=== PATIENT | female | born 2000 | race Caucasian/White ===

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

== ENCOUNTER 2021-09-19 03:53 | Emergency (ER) | payer OTHER, SELFPAY ==
--- NOTE | ~2021-09-19 | US_ITS ---
EXAMINATION: US OBSTETRICAL ULTRASOUND CLINICAL INFORMATION: Left lower quadrant and pelvic pain. 12 weeks by dates. COMPARISON: None. LMP: 06/28/2021. Gestational age by maternal dates is 11 weeks 6 days. Estimated date of delivery by maternal dates is 04/04/2022. TECHNIQUE: Ultrasound of the maternal pelvis is performed using transabdominal and transvaginal transducers. Transvaginal imaging is performed due to inadequate visualization transabdominally. M-mode Doppler is also performed. FINDINGS: With transvaginal scanning, there is suggestion of a tiny intrauterine gestational sac, only 0.3 cm size (4 weeks 5 days). The endometrial double wall thickness is 10 mm. No fluid in uterine cavity. No visible embryo or yolk sac. MATERNAL ADNEXA: The right maternal ovary measures 3.2 x 1.9 x 1.9 cm. No right adnexal mass. The left maternal ovary measures 2.7 x 2.0 x 2.7 cm. No left adnexal mass. No maternal pelvic ascites. US/US OB pelvic and transvaginal IMPRESSION: -Probable early intrauterine gestational sac, only 3 mm size (4 weeks 5 days). -No visible embryo or yolk sac. -No maternal adnexal mass or pelvic ascites. -Recommend follow-up beta hCG and ultrasound to confirm developing intrauterine .
[2021-09-19 04:13] VITALS: BP 136/76; PULSE 91; RESP 18; TEMP 36.3; O2SAT 97; BMI 32.0
[2021-09-19 04:34] LABS: Hematocrit 36.6 % (37.0-47.0); Hemoglobin 12.4 g/dl (12.0-16.0); Mean Corpuscular HGB Conc 33.9 g/dl (31.0-35.0); Mean Corpuscular Hemoglobin 29.3 pg (27.0-33.0); Mean Corpuscular Volume 86.5 fL (80.0-98.0); Mean Platelet Volume 10.3 fL (9.4-12.3); Platelet Count 321 X10*3/uL (160-400); Red Blood Count 4.23 X10*6/uL (4.20-5.50); Red Cell Distribution Width 12.3 % (11.0-16.0); White Blood Count 9.5 X10*3/uL (4.8-10.8)
[2021-09-19 04:36] LABS: Appearance Urine CLOUDY; Color Urine YELLOW; Glucose Urine UA NEG (NEG); Leukocyte Esterase Urine NEG (NEG); Nitrite Urine NEG (NEG); Specific Gravity - Urine >= 1.030 (1.005-1.025); Urine Blood NEG (NEG); Urine Ketones 5 MG/DL (NEG); Urine Protein TRACE MG/DL (NEG-TRACE)
[2021-09-19 04:46] LABS: Bacteria Urine 2+ /LPF; Granular Casts Urine 0-2 /LPF; RBC Urine 0-2 /HPF (0); Squamous Epithelial Cell Urine 1+ /LPF; WBC Urine 0-2 /HPF (0-4)
[2021-09-19 04:51] LABS: Alanine Aminotransferase 14 U/L (0-31); Albumin Level 4.1 g/dL (3.5-5.0); Alkaline Phosphatase 75 U/L (39-117); Anion Gap 11 (12-20); Aspartate Amino Transferase 15 U/L (5-31); Bilirubin Total 0.5 mg/dL (0.0-1.0); Blood Urea Nitrogen 8 mg/dL (9-16); Calcium 9.4 mg/dL (8.4-10.2); Carbon Dioxide 23 mmol/L (22-29); Chloride 105 mmol/L (96-108); Creatinine Clr Calc Pharmacy 113.6; Estimated Glomerular Filt Rate > 60; Glucose Random 130 mg/dL (60-115); Potassium 3.4 mmol/L (3.3-5.1); Sodium 136 mmol/L (135-145); Total Protein 7.1 g/dL (6.5-8.0)
--- NOTE | 2021-09-19 07:42 | ED.GENADULT ---
HPI - General Adult General Chief complaint: General Medical Stated complaint: stomach pain radiates to bladder Time Seen by Provider: 09/19/21 05:27 Source: patient Mode of arrival: ambulatory Limitations: no limitations History of Present Illness HPI narrative: left pelvic pain all night last night, in addition she has a headache. Patient states that she has a sore throat. Denies N/V/D, no dysuria, LMP 3/10 patient is currently . Patient has her first appointment on the . Patient denies having an ultrasound. Related Data Previous Rx's Medication Instructions Recorded cyclobenzaprine 10 mg tablet 10 mg PO TID PRN #10 tab 02/01/20 ibuprofen 600 mg tablet 600 mg PO Q8H PRN #10 tab 02/01/20 Allergies Allergy/AdvReac Type Severity Reaction Status Date / Time No Known Allergies Allergy Verified 02/01/20 00:18 [No Known Allergies*] Review of Systems Constitutional: Constitutional: Reports no additional constitutional complaints Eyes: Eyes: Reports no additional eye complaints ENT: Denies dizziness Cardiovascular: Cardiovascular: Reports no additional cardiovascular complaints Respiratory: Respiratory: Reports as per HPI Gastrointestinal: Gastrointestinal: Reports no additional gastrointestinal complaints Genitourinary: Genitourinary: Reports no additional female genitourinary complaints Musculoskeletal: Musculoskeletal: Reports no additional musculoskeletal complaints Integumentary/Breasts: Skin/Breast: Denies rash Neurologic: Reports system reviewed and no additional complaints, except as documented, Denies dizziness and Denies Sensory deficit (Neuro) Psychiatric: Psychiatric: Denies anxiety PMFSH Social History Social History Alcohol intake: never Patient Tobacco Use Status: Former Tobacco user Smoked in Last 30 Days: Yes Use of substances other than those prescribed or required for medical reasons: No Advance Directives: No Advance Directives Information Provided: No Patient : Yes Physical Exam ED Vital Signs: Vital Signs - 24 hr 09/19/21 04:13 09/19/21 07:56 09/19/21 10:02 Temperature 97.3 F 97.6 F Pulse Rate 91 88 99 Respiratory Rate 18 18 18 Blood Pressure 136/76 111/74 161/82 H Pulse Oximetry 97 98 99 BMI result Body Mass Index 32.0 Const General: healthy appearing Nutritional Appearance: average body habitus Orientation/consciousness: oriented to person and patient oriented x3 Limitations: no limitations HENMT Other: erythema to pharynx, no exudates Head: Yes normal to inspection Ears: external ears normal General nose exam: Normal external nose present Mouth: Normal oral and palatal mucosa present Throat: Yes posterior oropharynx normal Eyes General: appearance normal, both eyes and all related structures Neck Neck: Yes normal visual inspection Chest Chest palpation & inspection: normal inspection of the chest Resp Auscultation: clear to auscultation bilaterally Cardio Jugular venous distension: no JVD Rate: regular rate Rhythm: regular rhythm Heart sounds: S1 normal heart sound present and S2 normal heart sound present GI Other: Left lower/ pelvic pain to palpation Palpation (GI): Soft to palpation, nontender and No hepatosplenomegaly present Auscultation: normal bowel sounds General: Yes no CVA tenderness Back/Spine/Pelvis Back: no CVA tenderness Skin General skin exam: no rashes or lesions noted Neuro General: oriented to person and patient oriented x3 Cranial nerves: Yes CN's II-XII intact bilaterally Motor exam (neuro): 5/5 motor strength present throughout Sensory Exam: No Sensory deficit (Neuro) Extrem General: Yes normal to inspection Psych Appearance: grossly normal Course Reevaluation(s) Reevaluation #1: Low HCG, early gestational sac, will follow with OB Time: 11:10 Medical Decision Making Lab Data Result diagrams: 09/19/21 04:29 09/19/21 04:29 Labs: Lab Results 09/19/21 09/19/21 09/19/21 Range/Units 04:29 04:29 04:29 WBC 9.5 (4.8-10.8) X10*3/uL RBC 4.23 (4.20-5.50) X10*6/uL Hgb 12.4 (12.0-16.0) g/dl Hct 36.6 L (37.0-47.0) % MCV 86.5 (80.0-98.0) fL MCH 29.3 (27.0-33.0) pg MCHC 33.9 (31.0-35.0) g/dl RDW 12.3 (11.0-16.0) % Plt Count 321 (160-400) X10*3/uL MPV 10.3 (9.4-12.3) fL Absolute Nucleated RBC 0.000 (0.0-0.012) X10*3/uL Nucleated RBC % (auto) 0.0 (0.0-0.2) /100WBC Sodium 136 (135-145) mmol/L Potassium 3.4 (3.3-5.1) mmol/L Chloride 105 (96-108) mmol/L Carbon Dioxide 23 (22-29) mmol/L Anion Gap 11 L (12-20) BUN 8 L (9-16) mg/dL Creatinine 0.77 (0.5-1.4) mg/dL Estim Creat Clear Calc 113.6 Estimated GFR > 60 Random Glucose 130 H (60-115) mg/dL Calcium 9.4 (8.4-10.2) mg/dL Total Bilirubin 0.5 (0.0-1.0) mg/dL AST 15 (5-31) U/L ALT 14 (0-31) U/L Alkaline Phosphatase 75 (39-117) U/L Total Protein 7.1 (6.5-8.0) g/dL Albumin 4.1 (3.5-5.0) g/dL Beta HCG, Quant 720 mIU/mL Urine Color YELLOW Urine Appearance CLOUDY Urine pH 6.0 (5.0-8.0) Ur Specific [place] >= 1.030 H (1.005-1.025) Urine Protein TRACE (NEG-TRACE) MG/DL Urine Glucose (UA) NEG (NEG) MG/DL Urine Ketones 5 (NEG) MG/DL Urine Blood NEG (NEG) Urine Nitrite NEG (NEG) Ur Leukocyte Esterase NEG (NEG) Urine RBC 0-2 (0) /HPF Urine WBC 0-2 (0-4) /HPF Ur Squamous Epith Cells 1+ /LPF Urine Bacteria 2+ /LPF Granular Casts 0-2 /LPF COVID-19 ([facility]) (Negative) COVID-19 Clin Com S. pyogenes GrpA SAMANTHA (Negative) 09/19/21 09/19/21 Range/Units 08:06 08:06 WBC (4.8-10.8) X10*3/uL RBC (4.20-5.50) X10*6/uL Hgb (12.0-16.0) g/dl Hct (37.0-47.0) % MCV (80.0-98.0) fL MCH (27.0-33.0) pg MCHC (31.0-35.0) g/dl RDW (11.0-16.0) % Plt Count (160-400) X10*3/uL MPV (9.4-12.3) fL Absolute Nucleated RBC (0.0-0.012) X10*3/uL Nucleated RBC % (auto) (0.0-0.2) /100WBC Sodium (135-145) mmol/L Potassium (3.3-5.1) mmol/L Chloride (96-108) mmol/L Carbon Dioxide (22-29) mmol/L Anion Gap (12-20) BUN (9-16) mg/dL Creatinine (0.5-1.4) mg/dL Estim Creat Clear Calc Estimated GFR Random Glucose (60-115) mg/dL Calcium (8.4-10.2) mg/dL Total Bilirubin (0.0-1.0) mg/dL AST (5-31) U/L ALT (0-31) U/L Alkaline Phosphatase (39-117) U/L Total Protein (6.5-8.0) g/dL Albumin (3.5-5.0) g/dL Beta HCG, Quant mIU/mL Urine Color Urine Appearance Urine pH (5.0-8.0) Ur Specific [place] (1.005-1.025) Urine Protein (NEG-TRACE) MG/DL Urine Glucose (UA) (NEG) MG/DL Urine Ketones (NEG) MG/DL Urine Blood (NEG) Urine Nitrite (NEG) Ur Leukocyte Esterase (NEG) Urine RBC (0) /HPF Urine WBC (0-4) /HPF Ur Squamous Epith Cells /LPF Urine Bacteria /LPF Granular Casts /LPF COVID-19 ([facility]) Negative (Negative) COVID-19 Clin Com See Note S. pyogenes GrpA SAMANTHA Negative (Negative) Imaging Data Pelvic US: Radiologist's impression: IMPRESSION: -Probable early intrauterine gestational sac, only 3 mm size (4 weeks 5 days). -No visible embryo or yolk sac. -No maternal adnexal mass or pelvic ascites. -Recommend follow-up beta hCG and ultrasound to confirm developing intrauterine . ? Discharge Plan Discharge Clinical Impression: Early stage of Patient Disposition: Home, Self-Care Instructions: at 7 to 10 Weeks (ED) Prescriptions: No Action ibuprofen 600 mg tablet 600 mg PO Q8H PRN (Reason: pain) Qty: 10 0RF cyclobenzaprine 10 mg tablet 10 mg PO TID PRN (Reason: muscle spasm) Qty: 10 0RF Referrals: Physician,Unknown J [Primary Care Provider] - 2 weeks Stand Alone Forms: Work/School Release
[2021-09-19 07:56] VITALS: BP 111/74; PULSE 88; RESP 18; TEMP 36.4; O2SAT 98
[2021-09-19] MEDS: Acetaminophen 325 MG TABLET 650 MG PO (08:00)
[2021-09-19 08:35] LABS: Strep A Nucleic Acid Negative (Negative)
[2021-09-19 08:36] LABS: COVID-19 Test Negative (Negative); IDNOW Serial# 9DB6401D
[2021-09-19 09:52] LABS: HCG Quantitative 720 mIU/mL
[2021-09-19 10:02] VITALS: BP 161/82; PULSE 99; RESP 18; O2SAT 99
== END 2021-09-19 11:25 | disposition home or self-care (01) ==
PROVIDERS: Emergency Provider Emergency Medicine
DX: O26.891 Other specified pregnancy related conditions, first trimester (principal); R10.2 Pelvic and perineal pain; Z3A.01 Less than 8 weeks gestation of pregnancy; Z20.822 Contact with and (suspected) exposure to COVID-19
CPT/HCPCS: 36415; 76801; 76817; 80053; 81001; 84702; 85027; 87635; 87651; 99284

== ENCOUNTER 2022-10-18 18:41 | Emergency (ER) | payer OTHER, SELFPAY ==
[2022-10-18 18:45] VITALS: BP 144/68; PULSE 75; RESP 18; TEMP 36.8; O2SAT 100; BMI 32.0
--- NOTE | 2022-10-18 18:46 | ED.GENADULT ---
HPI - General Adult General Chief complaint: Skin/Abscess/Foreign Body Stated complaint: bad sun burn? back pain Time Seen by Provider: 10/18/22 19:06 Source: patient Mode of arrival: ambulatory Limitations: no limitations History of Present Illness HPI narrative: This is a 22-year-old female presenting to the emergency department for evaluation of sunburn to back with associated subjective fevers, chills, fatigue, nausea and her skin on her back is hurting. Patient reports she got sunburn 2 days ago and it is not getting better. Has been trying aloe with little to no relief. No sick contacts. No chest pain, shortness of breath, headache, vision changes, dizziness and weakness. Related Data Previous Rx's Medication Instructions Recorded cyclobenzaprine 10 mg tablet 10 mg PO TID PRN muscle spasm #10 02/01/20 tabs ibuprofen 600 mg tablet 600 mg PO Q8H PRN pain #10 tabs 02/01/20 ondansetron 4 mg disintegrating 4 mg PO Q6H PRN nausea and 10/18/22 tablet vomiting #14 tabs Allergies Allergy/AdvReac Type Severity Reaction Status Date / Time No Known Allergies Allergy Verified 02/01/20 00:18 [No Known Allergies*] Review of Systems Review of Systems: Constitutional : No Weight loss, No Fever, No Chills, No Fatigue, No Malaise ENT/Mouth : No sore throat, No Rhinorrhea Eyes: No Eye Pain, No Swelling, No Redness Cardiovascular : No Chest Pain, No SOB, No Dyspnea on Exertion, No Orthopnea, No Edema, No Palpitations Respiratory : No Cough, No Sputum, No Wheezing Gastrointestinal : No Nausea, No Vomiting, No Diarrhea, No Constipation, No abdominal Pain, No Hematochezia, No Melena Genitourinary : No Dysuria, No Urinary Frequency, No Hematuria, Musculoskeletal : No joint pain, No Myalgias, No Joint Swelling Skin : No Skin Lesions, No rash, + sun burn Neuro : No Weakness, No Numbness, No Dizziness, No Headache Psych : No Anxiety/Panic, No Depression All other systems reviewed and are negative Yes all other systems are reviewed and are negative [facility] Past Medical History Attestation statement: The following information was validated with the patient. Source: old records reviewed and nursing notes reviewed Social History Social History Alcohol intake: never Patient Tobacco Use Status: Former Tobacco user Physical Exam ED Vital Signs: Vital Signs - 24 hr 10/18/22 18:45 Temperature 98.3 F Pulse Rate 75 Respiratory Rate 18 Blood Pressure 144/68 H Pulse Oximetry 100 Oxygen Delivery Method Room Air BMI result Body Mass Index 32.0 Vital signs stable Appearance: Alert.? Oriented X3.? No acute distress.? Head: Normocephalic, atraumatic, no step-offs or deformities Eyes: Pupils equal, round and reactive to light.? ENT: Pharynx normal.? Neck: Normal inspection.? Neck supple.? CVS: Normal heart rate and rhythm.? Pulses normal.? Respiratory: No respiratory distress.? Breath sounds normal.? Abdomen: Soft and nontender.? Skin: Skin warm and dry.? Normal skin color.? Normal skin turgor.?+ superficial sunburn to back, lower extremities. No blistering. No signs of full-thickness burn, circumferential garcia are 3rd degree garcia. No airway involvement. Extremities: No lower extremity edema.? No calf ttp. 5/5 strength to bilateral upper and lower extremities Back: No midline tenderness, no C-spine tenderness, full range of motion, no CVA tenderness bilaterally Neuro: Oriented X 3.? No motor deficit.? No sensory deficit. CN 2-12 intact Course Course Course Narrative: This is an RME: Additional HPI, ROS, PE not included below will be deferred to primary provider. 22 yo F presents w/ sun burn to back X2 days w/ a/c fevers and nausea Plan- zofran ordered Reevaluation(s) Reevaluation #1: Will discharge patient home with Zofran for nausea. Educated patient on diagnosis and treatment plan, answered all question, patient verbalizes understanding. At this time patient will be discharged home, advised to return with new or worsening symptoms. Educated on worrisome signs and symptoms and when to return. At this time I feel comfortable discharge home. Time: 19:05 Medical Decision Making Medical Decision Making MDM Narrative: 22-year-old female presents with sunburn to back. Physical exam significant for superficial sunburn to back, lower extremities. No blistering. No signs of full-thickness burn, circumferential garcia are 3rd degree garcia. No airway involvement. This is likely a superficial sunburn.No signs of full-thickness burn, circumferential garcia are 3rd degree agrcia. No airway involvement. No signs of necrosis, SJS, TEN Will discharge patient home with supportive measures. Differential Diagnosis Differential Diagnoses: The differential diagnosis associated with the presentation includes This is likely a superficial sunburn.No signs of full-thickness burn, circumferential garcia are 3rd degree garcia. No airway involvement. No signs of necrosis, SJS, TEN Admission/Observation Consideration of admission/observation: Escalation of care including admission/observation considered not indicated Core Measures AMI core measures followed: Yes Measure exclusions: not indicated Discharge Plan Discharge Clinical Impression: Sunburn Patient Disposition: Home, Self-Care Instructions: Sunburn (ED), Cold Compress or Soak (ED) Additional Instructions: Take your medications as prescribed. If you were prescribed antibiotics today, it is important that you take your medication to their entirety, do not skip any doses, do not finish them early. Follow-up with your primary care provider this week. Return to the emergency department with new or worsening symptoms. Such as fevers, chills, chest pain, shortness of breath, nausea, vomiting, dizziness, headache, vision changes, lethargy In case of emergency call 911 You can take ibuprofen every 6 hours, Tylenol every 4 as needed for pain or discomfort. Zofran has been sent for nausea and vomiting. Prescriptions: New ondansetron 4 mg tablet,disintegrating 4 mg PO Q6H PRN (Reason: nausea and vomiting) Qty: 14 0RF No Action ibuprofen 600 mg tablet 600 mg PO Q8H PRN (Reason: pain) Qty: 10 0RF cyclobenzaprine 10 mg tablet 10 mg PO TID PRN (Reason: muscle spasm) Qty: 10 0RF Referrals: Physician,Unknown J [Primary Care Provider] - 2 days
== END 2022-10-18 19:13 | disposition home or self-care (01) ==
LOC: HO.ED 19:12
PROVIDERS: Emergency Provider Student in an Organized Health Care Education/Training Program
DX: L55.9 Sunburn, unspecified (principal)
CPT/HCPCS: 99282; 99283

== ENCOUNTER 2023-02-26 08:54 | Emergency (ER) | payer OTHER, SELFPAY ==
[2023-02-26 09:13] VITALS: BP 129/71; PULSE 81; RESP 16; TEMP 37.3; O2SAT 99; BMI 36.8
[2023-02-26 09:31] LABS: MANUAL DIFF FLAG NO
[2023-02-26 09:32] LABS: Basophils Percent Auto 0.4 % (0-2); Eosinophils Absolute Auto 0.1 X10*3/uL (0.0-0.4); Eosinophils Percent Auto 1.3 % (0-4); Hematocrit 37.6 % (37.0-47.0); Hemoglobin 12.6 g/dl (12.0-16.0); Imm Gran Abs Auto 0.02 X10*3/uL (0.00-0.03); Imm Gran Pct Auto 0.2 % (0.0-0.4); Lymphocytes Absolute Auto 1.7 X10*3/uL (1.2-4.9); Lymphocytes Percent Auto 20.5 % (20-40); Mean Corpuscular HGB Conc 33.5 g/dl (31.0-35.0); Mean Corpuscular Hemoglobin 28.4 pg (27.0-33.0); Mean Corpuscular Volume 84.7 fL (80.0-98.0); Monocytes Absolute Auto 0.6 X10*3/uL (0.1-1.2); Monocytes Percent Auto 6.7 % (2-11); Neutrophils Absolute Auto 5.8 x10*3/uL (2.0-8.3); Neutrophils Percent Auto 70.9 % (45-73); Platelet Count 361 X10*3/uL (160-400); Red Blood Count 4.44 X10*6/uL (4.20-5.50); White Blood Count 8.2 X10*3/uL (4.8-10.8)
[2023-02-26 09:49] LABS: Alanine Aminotransferase 27 U/L (0-31); Albumin Level 4.1 g/dL (3.5-5.0); Alkaline Phosphatase 90 U/L (39-117); Anion Gap 12 (12-20); Aspartate Amino Transferase 23 U/L (5-31); Bilirubin Total 0.4 mg/dL (0.0-1.0); Blood Urea Nitrogen 9 mg/dL (9-16); Calcium 9.6 mg/dL (8.4-10.2); Carbon Dioxide 25 mmol/L (22-29); Chloride 108 mmol/L (96-108); Creatinine Clr Calc Pharmacy 132.4; Estimated Glomerular Filt Rate > 60; Glucose Random 113 mg/dL (60-115); Potassium 3.9 mmol/L (3.3-5.1); Sodium 141 mmol/L (135-145); Total Protein 7.3 g/dL (6.5-8.0)
[2023-02-26 10:15] LABS: UPreg QC Valid YES
[2023-02-26 10:16] LABS: Urine Pregnancy NEGATIVE (NEGATIVE)
[2023-02-26 10:22] LABS: Appearance Urine Cloudy; Color Urine Orange; Glucose Urine UA Negative (Negative); Leukocyte Esterase Urine Trace (Negative); Nitrite Urine Negative (Negative); PH 6.5 (5.0-9.0); Specific Gravity - Urine >= 1.030 (1.005-1.025); UMIC TRIGGER UACC YES; Urine Blood Large (3+) (Negative); Urine Ketones Negative (Negative); Urine Protein 30 (1+) mg/dL (Neg-Trace)
[2023-02-26 10:24] LABS: Bacteria Urine Trace (None Seen); Hyaline Casts Urine 0-2 /LPF (0-2); RBC Urine >20 /HPF (0-2); UACC Culture Trigger YES
[2023-02-26 11:10] VITALS: BP 115/81; PULSE 83; RESP 16; TEMP 37.1; O2SAT 98
[2023-02-26 12:25] LABS: HCG Quantitative < 2 mIU/mL
[2023-02-26 12:31] VITALS: BP 99/71; PULSE 76; RESP 16; O2SAT 99
[2023-02-26 12:57] VITALS: BP 113/83; PULSE 68; RESP 16; TEMP 37.1; O2SAT 100
[2023-02-26 13:00] LABS: Hematocrit 38.1 % (37.0-47.0); Hemoglobin 12.6 g/dl (12.0-16.0)
--- NOTE | 2023-02-26 13:13 | ED.FEMALEGU ---
HPI - Female Genitourinary General Chief complaint: Vaginal Bleeding Stated complaint: ? Vaginal bleeding/Abd pain Time Seen by Provider: 02/26/23 11:05 Source: patient Mode of arrival: ambulatory History of Present Illness HPI Narrative: This is a 23-year-old female who presents with significant amount of vaginal bleeding that she states happened previously to her when she had a miscarriage, her last menstrual period was approximately 1 and half months ago in she states over the past couple of days she has noted home test that she states was faintly positive . She states that she was changing pads every hour that were drenched and states that she was passing clots as well. At the time of my interview patient states the bleeding has significantly slowed down in the pain has improved. Related Data Previous Rx's Medication Instructions Recorded cyclobenzaprine 10 mg tablet 10 mg PO TID PRN muscle spasm #10 02/01/20 tabs ibuprofen 600 mg tablet 600 mg PO Q8H PRN pain #10 tabs 02/01/20 ondansetron 4 mg disintegrating 4 mg PO Q6H PRN nausea and 10/18/22 tablet vomiting #14 tabs Allergies Allergy/AdvReac Type Severity Reaction Status Date / Time No Known Allergies Allergy Verified 02/26/23 09:13 [No Known Allergies*] Review of Systems Review of Systems: Pertinent positives and negatives as stated in HPI PMFSH Past Medical History Source: nursing notes reviewed Social History Social History Alcohol intake: never Patient Tobacco Use Status: Former Tobacco user Smoked in Last 30 Days: No Substance Use Type: Marijuana Substance Use Frequency: Occasionally Advance Directives: No Advance Directives Information Provided: No Physical Exam Vital Signs: Vital Signs: Last Vital Signs Temp 98.8 F 02/26/23 12:57 Pulse 68 02/26/23 12:57 Resp 16 02/26/23 12:57 BP 113/83 02/26/23 12:57 Pulse Ox 100 02/26/23 12:57 O2 Del Method Room Air 02/26/23 12:57 BMI result Body Mass Index 36.8 VITAL SIGNS: Reviewed. GENERAL: Well developed, well nourished, in no acute distress. HEAD: Normocephalic/atraumatic EYES: PERRLA, EOMI EARS: Ext canals without abnormality NOSE: Nares patent bilateral OROPHARYNX: no oral lesions noted, posterior pharynx clear NECK: Supple, no adenopathy LUNGS: Normal breath sounds. No adventitious sounds or accessory muscle use. SpO2<100> CARDIOVASCULAR: Regular rate and rhythm without noted murmurs ABDOMEN: Soft, non-tender, non-distended with bowel sounds. MUSCULOSKELETAL: No tenderness, deformities, or effusions noted on gross inspection. EXTREMITIES: No cyanosis, clubbing or edema. SKIN: Inspection of the skin reveals no rashes NEUROLOGIC: Alert and oriented x 4. Strength and sensation to light touch were grossly intact x 4. Medical Decision Making Medical Decision Making [facility] Narrative: 23-year-old female with history and clinical presentation, DDX: Menorrhagia, SAB, ectopic I reviewed all investigations and most notably vital signs do not demonstrated any tachycardia or hypotension. Hematologic indices remain stable without anemia and there is no leukocytosis or left shift, and no thrombocytopenia. Chemistry indices are grossly within normal limits without EDITA and there are no electrolyte or liver enzyme abnormalities, beta hCG is undetectable. Urinalysis consistent with findings that would associated with current menstrual. And no evidence of urinary tract infection and urine is also negative. My interpretation is that patient is having her menstrual bleeding. There is no evidence on beta hCG to suggest recent as it often takes much longer than simply 24 hours for beta-hCG to decline after loss. Patient is hemodynamically stable does not appear to be symptomatic anemic and not anemic on lab work after serial H/H. Differential Diagnosis Differential Diagnoses: The differential diagnosis associated with the presentation includes Please see the discussion above Admission/Observation Consideration of admission/observation: Escalation of care including admission/observation considered Please see the discussion above Lab Data [facility] Lab Attestation statement: I reviewed the patient's lab results. Please see the discussion above 02/26/23 12:55 02/26/23 09:27 Labs: Lab Results 02/26/23 02/26/23 02/26/23 Range/Units 09:27 10:08 12:55 WBC 8.2 (4.8-10.8) X10*3/uL RBC 4.44 (4.20-5.50) X10*6/uL Hgb 12.6 12.6 (12.0-16.0) g/dl Hct 37.6 38.1 (37.0-47.0) % MCV 84.7 (80.0-98.0) fL MCH 28.4 (27.0-33.0) pg MCHC 33.5 (31.0-35.0) g/dl RDW 13.0 (11.0-16.0) % Plt Count 361 (160-400) X10*3/uL MPV 10.0 (9.4-12.3) fL Immature Gran % (Auto) 0.2 (0.0-0.4) % Neut % (Auto) 70.9 (45-73) % Lymph % (Auto) 20.5 (20-40) % [place] % (Auto) 6.7 (2-11) % Eos % (Auto) 1.3 (0-4) % Baso % (Auto) 0.4 (0-2) % Lymph # (Auto) 1.7 (1.2-4.9) X10*3/uL [place] # (Auto) 0.6 (0.1-1.2) X10*3/uL Eos # (Auto) 0.1 (0.0-0.4) X10*3/uL Baso # (Auto) 0.0 (0.0-0.2) X10*3/uL Abs Immat Gran (auto) 0.02 (0.00-0.03) X10*3/uL Absolute Neuts (auto) 5.8 (2.0-8.3) x10*3/uL Absolute Nucleated RBC 0.000 (0.0-0.012) X10*3/uL Nucleated RBC % (auto) 0.0 (0.0-0.2) /100WBC Sodium 141 (135-145) mmol/L Potassium 3.9 (3.3-5.1) mmol/L Chloride 108 (96-108) mmol/L Carbon Dioxide 25 (22-29) mmol/L Anion Gap 12 (12-20) BUN 9 (9-16) mg/dL Creatinine 0.70 (0.5-1.4) mg/dL Estim Creat Clear Calc 132.4 Estimated GFR > 60 Random Glucose 113 (60-115) mg/dL Calcium 9.6 (8.4-10.2) mg/dL Total Bilirubin 0.4 (0.0-1.0) mg/dL AST 23 (5-31) U/L ALT 27 (0-31) U/L Alkaline Phosphatase 90 (39-117) U/L Total Protein 7.3 (6.5-8.0) g/dL Albumin 4.1 (3.5-5.0) g/dL Beta HCG, Quant < 2 mIU/mL Urine Color [place] A Urine Appearance Cloudy Urine pH 6.5 (5.0-9.0) Ur Specific [place] >= 1.030 H (1.005-1.025) Urine Protein 30 (1+) H (Neg-Trace) mg/dL Urine Glucose (UA) Negative (Negative) mg/dL Urine Ketones Negative (Negative) mg/dL Urine Blood Large (3+) H (Negative) Urine Nitrite Negative (Negative) Ur Leukocyte Esterase Trace H (Negative) Urine RBC >20 H (0-2) /HPF Urine WBC 6-10 H (0-5) /HPF Ur Squamous Epith Cells 3-5 (0-2) /HPF Urine Bacteria Trace (None Seen) Hyaline Casts 0-2 (0-2) /LPF Urine Test NEGATIVE (NEGATIVE) Discharge Plan Discharge Clinical Impression: Menorrhagia Patient Disposition: Home, Self-Care Instructions: Menorrhagia (ED) Additional Instructions: Please follow-up with your primary care doctor in the next 1-2 days. Recommend [id number] Tylenol/ibuprofen as needed for pain control. Return to the ER for any worsening symptoms. Prescriptions: No Action ibuprofen 600 mg tablet 600 mg PO Q8H PRN (Reason: pain) Qty: 10 0RF cyclobenzaprine 10 mg tablet 10 mg PO TID PRN (Reason: muscle spasm) Qty: 10 0RF ondansetron 4 mg tablet,disintegrating 4 mg PO Q6H PRN (Reason: nausea and vomiting) Qty: 14 0RF
[2023-02-26] MEDS: Ibuprofen 400 MG TABLET PO (13:53)
[2023-02-26] MEDS: Acetaminophen 325 MG TABLET 975 MG PO (13:54)
== END 2023-02-26 13:45 | disposition home or self-care (01) ==
PROVIDERS: Emergency Provider Student in an Organized Health Care Education/Training Program
DX: N92.0 Excessive and frequent menstruation with regular cycle (principal); R10.2 Pelvic and perineal pain; Z79.899 Other long term (current) drug therapy; Z87.891 Personal history of nicotine dependence
CPT/HCPCS: 36415; 80053; 81001; 81025; 84702; 85014; 85018; 85025; 87086; 99283; 99284

== ENCOUNTER → 2023-11-27 14:22 | Outpatient (BNVA) | payer OTHER, SELFPAY | PROVIDERS: Visit Provider Physician Assistant Medical | DX: S62.652A Nondisplaced fracture of middle phalanx of right middle finger, initial encounter for closed fracture (principal); S62.654A Nondisplaced fracture of middle phalanx of right ring finger, initial encounter for closed fracture | CPT/HCPCS: 73130; 99203 ==

== ENCOUNTER → 2023-12-02 08:05 | Outpatient (BNVA) | payer OTHER, SELFPAY | PROVIDERS: Visit Provider Registered Nurse | DX: S62.652A Nondisplaced fracture of middle phalanx of right middle finger, initial encounter for closed fracture (principal); S62.654A Nondisplaced fracture of middle phalanx of right ring finger, initial encounter for closed fracture; X58.XXXA Exposure to other specified factors, initial encounter | CPT/HCPCS: 99213 ==

== ENCOUNTER 2023-12-09 10:21 | Outpatient (REF) | payer OTHER, SELFPAY ==
--- NOTE | ~2023-12-09 | XR_ITS ---
EXAMINATION: XR HAND, RIGHT CLINICAL INFORMATION: Pain. COMPARISON: None available. TECHNIQUE: PA, lateral, and oblique views of the right hand. FINDINGS: The bones and soft tissues are normal. No fracture. Alignment is anatomic. There is an ulnar minus variance. Joint spaces are maintained. No erosions or soft tissue calcifications. XR/XR hand RT min 3V IMPRESSION: Normal right hand. Electronically signed by: Edmund Lynn MD 01/01/2024 06:55 PM EDT
== END 2023-12-09 10:22 | disposition home or self-care (01) ==
LOC: HO.HOSX 10:21
PROVIDERS: Visit Provider Orthopaedic Surgery
DX: S62.622A Displaced fracture of middle phalanx of right middle finger, initial encounter for closed fracture (principal); S62.624A Displaced fracture of middle phalanx of right ring finger, initial encounter for closed fracture
CPT/HCPCS: 73130; 99202

== ENCOUNTER 2023-12-09 12:07 | Outpatient (AMB) | payer OTHER, SELFPAY ==
--- NOTE | 2023-12-09 12:24 | A.OFFVIS_ITS ---
Vital Signs 12/09/23 12:25 Height 5 ft 2 in Weight 190 lb BMI 34.7 Handedness Right Intake Visit Reasons: FC-Right 3rd 4th middle phalanges FX DOI 11/27/23 Intake Note: Melinda is a 23 yo right hand dominant female who presents today for a fracture care, worker's comp related, s/p right 3rd and 4th middle phalanges fractures, DOI 11/27/23. Patient states she was sitting on a chair with her hand placed on the door frame, her co-worker had told a student to sit down so he became upset resulting in him closing the door on the patient's hand. When he saw her hand was stuck due to door being shut on her hand he kicked the door harder with her hand still in the door way. 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 Numbness and tingling is intermittent. She removes her splint when she showers and that is when she is able to move her fingers however she has pain that follows. She is unable to make a closed fist. Describes the pain as sharp majority of the time. She has a one year old daughter who has accidentally kicked her hand with diaper change that causes throbbing pain. She has swelling in all her fingers except thumb of left hand. Patient states she is taking naproxen for pain and finds relief. Denies prior injuries or surgeries to the right hand. Allergies No Known Allergies [No Known Allergies*] Allergy (Verified 12/09/23 12:32) HPI HPI FC-Right 3rd 4th middle phalanges FX DOI 11/27/23: Details: Melinda is a 23 year old right hand dominant woman who presents for a right hand crush injury, DOI: 11/27/23. She had her hand crushed in a door by a student. She was seen by Work connections, splinted, and referred here. This is a workers comp visit. She complains of pain in her fingers primarily when moving them, or when they are struck against something. She has been wearing her finger splint as instructed, removing to shower where she also does gentle ROM exercises, but she complains of sharp pain in her fingers after this. She says her pain is worse recently after her 1 year old kicked her hand during a diaper change. She reports having swelling to her entire hand, except for her thumb, since her injury. She finds some relief from Naproxen & Tylenol. 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 She has not been working here as there is no light duty for her, she needs to be able to restrain students if necessary. 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 [facility] Social History (Updated 12/09/23 @ 12:34 by TERESSA Orozco) Alcohol intake: never Patient Tobacco Use Status: Former Tobacco user Substance Use Type: Marijuana Current occupational status: employed Current occupation: right hand dominant / tattoo designer for students w/ disabilities Review of Systems Const All systems reviewed & are unremarkable except as noted in HPI and below Physical Exam Vital Signs: BMI result Body Mass Index 34.7 Const General: cooperative, healthy appearing and no acute distress Orientation/consciousness: patient oriented x3 HEENT Head: Yes normocephalic and Yes atraumatic Eyes EOM: EOMs intact bilaterally Resp Effort & Inspection: normal respiratory effort and able to speak in complete sentences Cardio Jugular venous distension: no JVD Skin General skin exam: turgor normal Rashes: no rashes Neuro General: patient oriented x3 Extrem Other: Evaluation of Right Upper Extremity: The patient is alert, oriented, and in no acute distress Neuro: Median, Ulnar, Radial nerves motor and sensory intact and sensation is normal to the tips of all digits Vascular: Cap refill brisk With encouragement I can get her to bring her fingers out to extension and laid them on the table. She can actually bring her fingers close to a weak fist fairly easily. No angular rotational malalignment. Mild tenderness to palpation at the fracture sites at the distal aspect of both the middle and ring finger middle phalanxes. She has small scabs over the dorsal aspect of both of the fingers with the fracture site. She says these were superficial injuries. There is no erythema or swelling and no drainage in these areas. Radiographs: 3 views of the right hand were taken and viewed by me today in clinic. They show a middle finger distal aspect middle phalanx fracture, transverse, & a ring finger distal aspect middle phalanx fracture, transverse. Both fractures are nondisplaced. Psych Appearance: grossly normal Affect: normal affect Attitude: cooperative Office Procedures Fracture Care Details: Fracture care 12408 x 2, middle finger middle phalanx, and ring finger middle phalanx both on the right Fracture Billing Code: Fracture Billing Code Assessment & Plan Assessment & Plan (1) Fracture of middle phalanx of right middle finger: Code(s): S62.622A - Displaced fracture of middle phalanx of right middle finger, initial encounter for closed fracture Category: Medical (2) Fracture of middle phalanx of right ring finger: Code(s): S62.624A - Displaced fracture of middle phalanx of right ring finger, initial encounter for closed fracture Category: Medical Plan Assessment & Plan: 1. Right middle finger transverse distal aspect middle phalanx fracture, non- displaced From a crush injury in a door, DOI: 11/27/23 2. Right ring finger transverse distal aspect middle phalanx fracture, non- displaced From a crush injury in a door, DOI: 11/27/23 This is a workplace injury I educated her about this condition I discussed operative and non-operative treatment options I think we will manage this non-operatively She was fitted for finger splint that will allow for PIP motion for both digits, these are to be worn with daily activities She will remove her splints to shower & to work on ROM She also has an aluminum splint that she rest her hand in that she has been using. She may use this when sleeping or whenever she wants. It seems to be doing a good job of protecting her fingers. It is just another option. She should be careful of her finger when caring for her 1 year old child I discussed activity modification, she is to lift nothing heavier than a cellphone for the next 2-3 weeks. She should avoid any impact activities as well She was given a note for work to return to light duty with a 2lb weight limit, with no restraining activities for at least the next 4 weeks She will follow up in 3 weeks, with X-rays, 3V attn R MF & RF. Scribed for Lana Sharma MD by Ankush Hi, nuclear medical technologist, on 12/09/23 at 12:50 PM, EST. Orders: Orders XR hand RT min 3V Today M79.641 - Pain in right hand Coding Level of Care Code New Pt Level 4 (66050) Diagnoses Fracture of middle phalanx of right middle finger S62.622A Fracture of middle phalanx of right ring finger S62.624A CPT Codes Fracture Care - Fracture Billing Code: Fracture Billing Code ([id number])
[2023-12-09 12:25] VITALS: BMI 34.7
== END 2023-12-09 13:20 | disposition home or self-care (01) ==
PROVIDERS: Visit Provider Orthopaedic Surgery
DX: S62.622A Displaced fracture of middle phalanx of right middle finger, initial encounter for closed fracture (principal); S62.624A Displaced fracture of middle phalanx of right ring finger, initial encounter for closed fracture
CPT/HCPCS: 99203

== ENCOUNTER 2024-01-13 13:47 | Outpatient (AMB) | payer OTHER, SELFPAY ==
--- NOTE | 2024-01-13 14:17 | A.OFFVIS_ITS ---
Vital Signs 01/13/24 14:18 Height 5 ft 2 in Weight 190 lb BMI 34.7 Intake Visit Reasons: OV-Right 3rd 4th middle phalanges FX DOI 11/27/23 Intake Note: Melinda is a 23 yo right hand dominant female who presents today for a follow up evaluation s/p right 3rd and 4th middle phalanges fracture, DOI 11/27/23, worker's comp related. Patient reports her right middle finger continues to hurt when trying to make a first or bend it during daily activities. She is not taking anything for pain at this time. Allergies No Known Allergies [No Known Allergies*] Allergy (Verified 01/13/24 14:30) HPI HPI OV-Right 3rd 4th middle phalanges FX DOI 11/27/23: Details: Melinda is a 23 year old right hand dominant woman who presents for a right hand crush injury, DOI: 11/27/23. She had her hand crushed in a door by a student. She was seen by Work connections, splinted, and referred here. This is a workers comp visit. She complains of pain primarily in her middle finger when trying to make a fist or forming department end finder things. She has been wearing her finger splint as instructed, and working on ROM exercises at home. She says she has been working hard on improving her ROM. She is a smoker. 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 She has not been working here as there is no light duty for her, she needs to be able to restrain students if necessary. 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 She has been doing this instead. 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 Review of Systems Const All systems reviewed & are unremarkable except as noted in HPI and below Physical Exam Vital Signs: BMI result Body Mass Index 34.7 Const General: no acute distress and alert Orientation/consciousness: patient oriented x3 Neuro General: patient oriented x3 Extrem Other: Evaluation of Right Upper Extremity: The patient is alert, oriented, and in no acute distress Neuro: Median, Ulnar, Radial nerves motor and sensory intact and sensation is normal to the tips of all digits Vascular: Cap refill brisk ROM: With encouragement she can bring her fingers closed to a fist and back into full extension No angular rotational mal-alignment. Minimal tenderness to palpation at the fracture sites at the distal aspect of the middle finger middle phalanx No tenderness over the ring finger She has small scabs over the dorsal aspect of both of the fingers with the fracture site, which are healing well. She says these were superficial injuries. There is no erythema or swelling and no drainage in these areas. Radiographs: 3 views of the right hand were taken and viewed by me today in clinic. They show a middle finger distal aspect middle phalanx fracture, transverse, & a ring finger distal aspect middle phalanx fracture, transverse. Both fractures are nondisplaced, with satisfactory fracture alignment and good evidence of interval bony healing. Psych Appearance: grossly normal Affect: normal affect Attitude: cooperative Assessment & Plan Assessment & Plan (1) Fracture of middle phalanx of right middle finger: Code(s): S62.622A - Displaced fracture of middle phalanx of right middle finger, initial encounter for closed fracture Category: Medical (2) Fracture of middle phalanx of right ring finger: Code(s): S62.624A - Displaced fracture of middle phalanx of right ring finger, initial encounter for closed fracture Category: Medical Plan Assessment & Plan: 1. Right middle finger transverse distal aspect middle phalanx fracture, non- displaced From a crush injury in a door, DOI: 11/27/23 2. Right ring finger transverse distal aspect middle phalanx fracture, non- displaced From a crush injury in a door, DOI: 11/27/23 This is a workplace injury I educated her about this condition We will continue to manage this non-operatively She will discontinue her finger splint at this time. She will wear them when out of the house in crowded environments for the next 3 weeks She should be careful of her finger when caring for her 1 year old child I discussed activity modification, she is to begin using her hand for lightweight activities at this time. She is to avoid any impact activities, ball sports, or heavy lifting at this time. She was given a note for work to return to light duty with a 2lb weight limit, with no restraining activities for the next 3 weeks, effective 01/19/24 She will follow up with WALTER Enriquez in 3 weeks for a ROM check and to discuss work restrictions. Anticipate return to full duty at that time Scribed for Lana Sharma MD by Ankush Hi, dental assistant medical assistant, on 01/13/24 at 3:00 PM, EST. Orders: Orders OT Evaluation and Treatment 01/13/24 S62.622A - Displaced fracture of middle phalanx of right middle finger, initial encounter for closed fracture, S62.624A - Displaced fracture of middle phalanx of right ring finger, initial encounter for closed fracture Coding Level of Care Code Global (34460) Diagnoses Fracture of middle phalanx of right middle finger S62.622A Fracture of middle phalanx of right ring finger S62.624A
[2024-01-13 14:18] VITALS: BMI 34.7
== END 2024-01-13 15:18 | disposition home or self-care (01) ==
PROVIDERS: Visit Provider Orthopaedic Surgery
DX: S62.622A Displaced fracture of middle phalanx of right middle finger, initial encounter for closed fracture (principal); S62.624A Displaced fracture of middle phalanx of right ring finger, initial encounter for closed fracture
CPT/HCPCS: 99213

== ENCOUNTER → 2024-01-13 13:47 | Outpatient (BNVA) | payer OTHER, SELFPAY | PROVIDERS: Visit Provider Orthopaedic Surgery | DX: S62.622D Displaced fracture of middle phalanx of right middle finger, subsequent encounter for fracture with routine healing (principal); S62.624D Displaced fracture of middle phalanx of right ring finger, subsequent encounter for fracture with routine healing | CPT/HCPCS: 99212 ==

== ENCOUNTER 2024-01-23 22:42 | Emergency (ER) | payer SELFPAY ==
[2024-01-23 22:53] VITALS: BP 109/70; PULSE 99; RESP 20; TEMP 36.9; O2SAT 97; BMI 32.9
--- NOTE | 2024-01-23 23:10 | MHC.EDTECH ---
Patient brought to triage,labs drawn and sent to lab,patient was unable to give a urine at this time.
[2024-01-23 23:16] LABS: MANUAL DIFF FLAG NO
[2024-01-23 23:17] LABS: Basophils Percent Auto 0.4 % (0-2); Eosinophils Absolute Auto 0.3 X10*3/uL (0.0-0.4); Eosinophils Percent Auto 2.2 % (0-4); Hematocrit 36.9 % (37.0-47.0); Hemoglobin 12.7 g/dl (12.0-16.0); Imm Gran Abs Auto 0.03 X10*3/uL (0.00-0.03); Imm Gran Pct Auto 0.3 % (0.0-0.4); Lymphocytes Absolute Auto 2.9 X10*3/uL (1.2-4.9); Lymphocytes Percent Auto 25.7 % (20-40); Mean Corpuscular HGB Conc 34.4 g/dl (31.0-35.0); Mean Corpuscular Hemoglobin 29.3 pg (27.0-33.0); Mean Corpuscular Volume 85.2 fL (80.0-98.0); Monocytes Absolute Auto 0.8 X10*3/uL (0.1-1.2); Monocytes Percent Auto 7.3 % (2-11); Neutrophils Absolute Auto 7.2 x10*3/uL (2.0-8.3); Neutrophils Percent Auto 64.1 % (45-73); Platelet Count 317 X10*3/uL (160-400); Red Blood Count 4.33 X10*6/uL (4.20-5.50); Red Cell Distribution Width 13.2 % (11.0-16.0); White Blood Count 11.2 X10*3/uL (4.8-10.8)
[2024-01-23 23:43] LABS: Appearance Urine Cloudy; Color Urine Yellow; Glucose Urine UA Negative (Negative); Leukocyte Esterase Urine Moderate (2+) (Negative); Nitrite Urine Negative (Negative); UMIC TRIGGER UACC YES; Urine Blood Moderate (2+) (Negative); Urine Ketones Negative (Negative); Urine Protein 30 (1+) mg/dL (Neg-Trace)
[2024-01-23 23:48] LABS: Bacteria Urine 4+ (None Seen); Hyaline Casts Urine 0-2 /LPF (0-2); UACC Culture Trigger YES; WBC Urine >50 /HPF (0-5)
[2024-01-23 23:52] LABS: Alanine Aminotransferase 26 U/L (0-31); Alkaline Phosphatase 96 U/L (39-117); Anion Gap 13 (12-20); Aspartate Amino Transferase 21 U/L (5-31); Bilirubin Total 0.4 mg/dL (0.0-1.0); Blood Urea Nitrogen 10 mg/dL (9-16); Carbon Dioxide 23 mmol/L (22-29); Chloride 108 mmol/L (96-108); Creatinine Clr Calc Pharmacy 115.4; Estimated Glomerular Filt Rate > 60; Glucose Random 110 mg/dL (60-115); HCG Quantitative < 2 mIU/mL; Potassium 3.7 mmol/L (3.3-5.1); Sodium 140 mmol/L (135-145); Total Protein 7.1 g/dL (6.5-8.0)
[2024-01-24 01:53] VITALS: BP 98/63; PULSE 93; RESP 18; O2SAT 96
[2024-01-24 04:37] VITALS: BP 124/52; PULSE 87; RESP 16; TEMP 37; O2SAT 98
--- NOTE | 2024-01-24 05:00 | ED.FEMALEGU ---
HPI - Female Genitourinary General Chief complaint: Urogenital-Female Stated complaint: abd pain Time Seen by Provider: 01/24/24 04:50 Source: patient Mode of arrival: ambulatory Limitations: no limitations History of Present Illness ED Provider: Dr. Anna Gay HPI Narrative: Patient comes to the emergency room complaining of pain with urination. Patient states it started about a week ago. Patient states that earlier today she had back pain but mostly resolved with ibuprofen. Patient denies hematuria. Related Data Previous Rx's ?Medication ?Instructions ?Recorded naproxen 500 mg tablet 500 mg PO BID PRN back pain #28 11/27/23 tabs levofloxacin 500 mg tablet 500 mg PO DAILY #9 tabs 01/24/24 Allergies Allergy/AdvReac Type Severity Reaction Status Date / Time No Known Allergies Allergy Verified 01/23/24 22:58 [No Known Allergies*] Review of Systems Review of Systems: Constitutional : No Weight loss, No Fever, No Chills, No Night Sweats, No Fatigue, No Malaise ENT/Mouth : No Hearing loss, No Ear Pain, No Nasal Congestion, No Sinus Pain, No Hoarseness, No sore throat, No Rhinorrhea, No Swallowing Difficulty Eyes: No Eye Pain, No Swelling, No Redness, No Foreign Body, No Discharge, No Vision Changes Cardiovascular : No Chest Pain, No SOB, No Dyspnea on Exertion, No Orthopnea, No Edema, No Palpitations Respiratory : No Cough, No Sputum, No Wheezing, No Smoke Exposure, No Dyspnea Gastrointestinal : No Nausea, No Vomiting, No Diarrhea, No Constipation, No abdominal Pain, No Hematochezia, No Melena Genitourinary : no irregular bleeding, complaining of Dysuria, No Urinary Frequency, No Hematuria, No Urinary Incontinence, No Urgency, complaining of bilateral flank pain which resolved with ibuprofen, No Urinary Flow Changes, No Hesitancy Musculoskeletal : No joint pain, No Myalgias, No Joint Swelling Skin : No Skin Lesions, No rash Neuro : No Weakness, No Numbness, No Paresthesias, No Loss of Consciousness, No Dizziness, No Headache Psych : No Anxiety/Panic, No Depression, No SI/HI/AH/VH, No Social Issues, Heme/Lymph: No Bruising, No Bleeding,No Lymphadenopathy Endocrine : No Polyuria, No Polydipsia, No Temperature Intolerance [facility] Social History Social History (Updated 12/09/23 @ 12:34 by TERESSA Orozco) Alcohol intake: never Patient Tobacco Use Status: Former Tobacco user Substance Use Type: Marijuana Advance Directives: No Advance Directives Information Provided: Yes Current occupational status: employed 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 Oriented X3. No acute distress. Well-appearing Eyes: Pupils equal, round and reactive to light. ENT: Pharynx normal. Neck: Normal inspection. Neck supple. No lymph nodes noted. No crepitus CVS: Normal heart rate and rhythm. Pulses normal. Normal S1 and S2 Respiratory: No respiratory distress. Breath sounds normal. No Wheezing. No rales Abdomen: Soft and nontender. No rigidity. No distention. No CVA tenderness Skin: Skin warm and dry. Normal skin color. Normal skin turgor. Extremities: No lower extremity edema. No Lacerations. No Rash Neuro: Oriented X 3. No motor deficit. No sensory deficit. Moving all extremities. No slurred speech. CN 2 through 12 grossly intact Psych: calm, cooperative, normal affect Medical Decision Making Medical Decision Making [facility] Narrative: My interpretation of labs: White blood cell count 11.2, normal chemistry, UTI positive for UTI -on physical exam, patient did not have CVA tenderness. No fever, normal blood pressure, sepsis not suspected -given the patient earlier today had CVA tenderness +has a UTI, pyelonephritis his suspected Patient was given levofloxacin and phenazopyridine in the ED Differential Diagnosis Differential Diagnoses: The differential diagnosis associated with the presentation includes (UTI, pyelonephritis, cystitis) Lab Data [facility] Lab Attestation statement: I reviewed the patient's lab results. 01/23/24 23:10 01/23/24 23:10 Labs: Lab Results 01/23/24 01/23/24 Range/Units 23:10 23:35 WBC 11.2 H (4.8-10.8) X10*3/uL RBC 4.33 (4.20-5.50) X10*6/uL Hgb 12.7 (12.0-16.0) g/dl Hct 36.9 L (37.0-47.0) % MCV 85.2 (80.0-98.0) fL MCH 29.3 (27.0-33.0) pg MCHC 34.4 (31.0-35.0) g/dl RDW 13.2 (11.0-16.0) % Plt Count 317 (160-400) X10*3/uL MPV 10.0 (9.4-12.3) fL Immature Gran % (Auto) 0.3 (0.0-0.4) % Neut % (Auto) 64.1 (45-73) % Lymph % (Auto) 25.7 (20-40) % [facility] % (Auto) 7.3 (2-11) % Eos % (Auto) 2.2 (0-4) % Baso % (Auto) 0.4 (0-2) % Lymph # (Auto) 2.9 (1.2-4.9) X10*3/uL [facility] # (Auto) 0.8 (0.1-1.2) X10*3/uL Eos # (Auto) 0.3 (0.0-0.4) X10*3/uL Baso # (Auto) 0.0 (0.0-0.2) X10*3/uL Abs Immat Gran (auto) 0.03 (0.00-0.03) X10*3/uL Absolute Neuts (auto) 7.2 (2.0-8.3) x10*3/uL Absolute Nucleated RBC 0.000 (0.0-0.012) X10*3/uL Nucleated RBC % (auto) 0.0 (0.0-0.2) /100WBC Sodium 140 (135-145) mmol/L Potassium 3.7 (3.3-5.1) mmol/L Chloride 108 (96-108) mmol/L Carbon Dioxide 23 (22-29) mmol/L Anion Gap 13 (12-20) BUN 10 (9-16) mg/dL Creatinine 0.75 (0.5-1.4) mg/dL Estim Creat Clear Calc 115.4 Estimated GFR > 60 Random Glucose 110 (60-115) mg/dL Calcium 9.0 D (8.4-10.2) mg/dL Total Bilirubin 0.4 (0.0-1.0) mg/dL AST 21 (5-31) U/L ALT 26 (0-31) U/L Alkaline Phosphatase 96 (39-117) U/L Total Protein 7.1 (6.5-8.0) g/dL Albumin 4.0 (3.5-5.0) g/dL Beta HCG, Quant < 2 mIU/mL Urine Color Yellow Urine Appearance Cloudy Urine pH 6.0 (5.0-9.0) Ur Specific [place] 1.020 (1.005-1.025) Urine Protein 30 (1+) H (Neg-Trace) mg/dL Urine Glucose (UA) Negative (Negative) mg/dL Urine Ketones Negative (Negative) mg/dL Urine Blood Moderate (2+) H (Negative) Urine Nitrite Negative (Negative) Ur Leukocyte Esterase Moderate (2+) H (Negative) Urine RBC 6-10 H (0-2) /HPF Urine WBC >50 H (0-5) /HPF Ur Squamous Epith Cells 6-10 (0-2) /HPF Urine Bacteria 4+ (None Seen) Hyaline Casts 0-2 (0-2) /LPF Discharge Plan Discharge Clinical Impression: Pyelonephritis Patient Disposition: Home, Self-Care Instructions: Kidney Infection (ED) Additional Instructions: Please follow-up with your primary care physician tomorrow. If you have any worsening or new symptoms, please return to the emergency room or call 911 Prescriptions: New levofloxacin 500 mg tablet 500 mg PO DAILY Qty: 9 0RF No Action naproxen 500 mg tablet 500 mg PO BID PRN (Reason: back pain) Qty: 28 0RF Print Language: Latvian
[2024-01-24] MEDS: levoFLOXacin 500 MG TABLET PO (05:20)
[2024-01-24] MEDS: Phenazopyridine HCL 100 MG TABLET PO (05:20)
[2024-01-24 05:29] VITALS: BP 103/47; PULSE 77; RESP 16; TEMP 36.7; O2SAT 98
== END 2024-01-24 05:40 | disposition home or self-care (01) ==
PROVIDERS: Emergency Provider Emergency Medicine
DX: N12 Tubulo-interstitial nephritis, not specified as acute or chronic (principal); R30.0 Dysuria; R10.9 Unspecified abdominal pain; Z87.891 Personal history of nicotine dependence; Z79.899 Other long term (current) drug therapy
CPT/HCPCS: 36415; 80053; 81001; 84702; 85025; 87086; 87088; 87186; 99283; 99284

== ENCOUNTER 2024-02-03 10:28 | Outpatient (AMB) | payer OTHER, SELFPAY ==
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
[2024-02-03 10:49] VITALS: BMI 32.9
== END 2024-02-03 10:56 | disposition home or self-care (01) ==
DX: S62.622A Displaced fracture of middle phalanx of right middle finger, initial encounter for closed fracture (principal); S62.624A Displaced fracture of middle phalanx of right ring finger, initial encounter for closed fracture
CPT/HCPCS: 99212

== ENCOUNTER → 2024-02-03 10:28 | Outpatient (BNVA) | payer OTHER, SELFPAY | DX: S62.622D Displaced fracture of middle phalanx of right middle finger, subsequent encounter for fracture with routine healing (principal); S62.624D Displaced fracture of middle phalanx of right ring finger, subsequent encounter for fracture with routine healing | CPT/HCPCS: 99212 ==

== ENCOUNTER 2024-02-12 11:30 | Outpatient (RCR) | payer OTHER, SELFPAY ==
--- NOTE | 2024-01-26 10:54 | MHC.OT.EP ---
[address] [phone] Occupational Therapy Plan of Care Patient Name: Melinda Rosales Date of Evaluation: 01/23/24 Diagnosis: displaced fx of Middle phalanx of R MF displaced fx of middle phalanx of R RF Pain Location: R hand digits 3-4 Pain Score: 4 Pain Scale Used: Numeric (0 - 10) Aggravating Factors: Overuse of pt's R hand Alleviating Factors: Tylenol Assessment: Pt is a 24 yr. old R hand dominant female who injured her R hand when it was slammed in a door at work. 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 She went tot he ED and was diagnosed w/ displaced fractures of the middle phalanx of the RF & MF. She has been splinted since the DOI 11/27/23. She most recently had a follow up w/ the MD (01/12) and pt is healing well. She has been referred to skilled OT therapy to improve AROM, strength, and functional use of her R hand to RTW SAFELY. Frequency and Duration: The patient will be seen 2 xs a week for 4 weeks Short Term Goals: Pt will be complaint w/ her HEP Pt will gain PLUNKETT of her R RF to 260 pain free Pt will make a pain free composite fist Learning Support Teacher Goals: Pt will gain 20 lbs of R hand rf test technician (50lbs) Pt will use her R hand to carry a light grocery bag Pt will report 0/10 pain w/ use of her R hand Treatment Plan: Therapeutic Exercise Therapeutic Activity Home Exercise Program Splinting Neuro Re-ed Patient Education Desensitization/Sensory Re-ed Edema Control ADL Training Ultrasound NMES Iontophoresis Paraffin Fluidotherapy MHP Cold Packs Joint Mobilization Soft Tissue Mobilization Kinesiotaping Other (see comments) Electronically Signed By: Renetta Morgan OTR/L Please Sign and return to therapist. Thank you once again for your referral.
--- NOTE | 2024-02-20 07:59 | MHC.OT.DC ---
[address] [phone] F: [phone] Occupational Therapy Discharge Note Patient Name: Melinda Rosales Provider: Lana Sharma Diagnosis: displaced fx of Middle phalanx of R MF displaced fx of middle phalanx of R RF Date of Surgery: Date of Evaluation: 01/23/24 Date of Discharge: Treatments to Date: 4 Cancellations to Date: No Shows to Date: Discharge Status: Visit Non-compliance Discharge Summary: Pt went back to work Friday (02/09/24). Pt tolerated strengthening well today with no increase of pain. Android Ui Developer strength has increased 5lbs from previous visit. Pt is able to make full fist w/out pain. 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
== END 2024-02-20 07:59 | disposition home or self-care (01) ==
LOC: HO.OT 11:30
PROVIDERS: Visit Provider Orthopaedic Surgery
DX: S62.622D Displaced fracture of middle phalanx of right middle finger, subsequent encounter for fracture with routine healing (principal); S62.624D Displaced fracture of middle phalanx of right ring finger, subsequent encounter for fracture with routine healing
CPT/HCPCS: 97110; 97140; 97165; 97535

== ENCOUNTER 2024-02-28 17:47 | Emergency (ER) | payer SELFPAY ==
[2024-02-28 17:51] VITALS: BP 122/81; PULSE 103; RESP 18; TEMP 36.8; O2SAT 96; BMI 36.0
--- NOTE | 2024-02-28 18:00 | ED.URI ---
HPI - URI/Sore Throat General Chief Complaint: Upper Respiratory Symptoms Stated Complaint: tonsillitis Time Seen by Provider: 02/28/24 18:05 Source: patient Mode of arrival: ambulatory Limitations: no limitations History of Present Illness HPI Narrative: Patient is a 24-year-old female who presents emergency department for evaluation sore throat for past 5 days, painful swallowing. Reports having cold symptoms last week but had completely resolved prior to the onset of her sore throat. Denies fevers, chills, headache, dizziness, neck pain, neck stiffness, chest pain, shortness of breath, difficulty breathing, cough, sore throat, nausea, vomiting, abdominal pain, numbness or tingling of the extremities, genitourinary symptoms. Related Data Previous Rx's ?Medication ?Instructions ?Recorded naproxen 500 mg tablet 500 mg PO BID PRN back pain #28 11/27/23 tabs benzonatate 200 mg capsule 200 mg PO TID PRN cough #20 caps 02/28/24 cefuroxime axetil 500 mg tablet 500 mg PO BID 7 days #14 tabs 02/28/24 prednisone 20 mg tablet 40 mg (2 x 20 mg) PO DAILY #10 tabs 02/28/24 Allergies Allergy/AdvReac Type Severity Reaction Status Date / Time No Known Allergies Allergy Verified 02/28/24 17:54 [No Known Allergies*] Review of Systems Review of Systems: Yes all other systems are reviewed and are negative [facility] Past Medical History Attestation statement: The following information was validated with the patient. 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 No acute distress.?Normal affect. Eyes: Pupils equal, round and reactive to light.? ENT: TM normal bilaterally. Pharynx erythematous 2+ tonsillar hypertrophy bilaterally with exudates. Uvula is midline. No trismus. No drooling.?? Neck: Normal inspection.? Neck supple.??No cervical adenopathy CVS: Heart sounds normal. Normal heart rate and rhythm.? Pulses normal.?? Respiratory: No respiratory distress.? Lung sounds clear to auscultation bilaterally?? Abdomen: Soft and non-tender. Normoactive bowel sounds. Skin: Skin warm and dry.? Normal skin color.? ? Extremities: No lower extremity edema.? Neuro: Moves all extremities spontaneously. Sensation intact bilaterally. No motor deficits. Ambulates with normal steady gait. Medications Administered Discontinued Medications Generic Name Dose Route Start Last Admin Trade Name Freq PRN Reason Stop Dose Admin Dexamethasone Sodium Phosphate 10 mg 02/28/24 20:47 02/28/24 21:28 Dexamethasone Sod Phosphate 10 Mg/Ml Vial PO 02/28/24 20:48 10 mg ONCE ONE Administration Medical Decision Making Medical Decision Making [facility] Narrative: Patient is a 24-year-old female, presenting for evaluation of u sore throat. COVID-19/influenza/RSV testing is negative. Strep a testing is negative. Does not appear consistent with RPA/HANDSTITCHING MACHINE ARMHOLE FELLER. Hood screen being obtained. At this time history and physical exam not consistent with pneumonia. Well-appearing, nontoxic, afebrile, mild tachycardia, no tachypnea/hypoxia. Speaking clear full sentences, ambulatory with steady gait. Discussed conservative treatment including rest, hydration, Tylenol/ibuprofen as needed for fever and body aches, saline nasal spray, humidifier, [id number] cold medication. Patient signed out to Iker WATSON pending mono screening Patient's Monospot is negative on re-examination patient was wheezing will prescribe inhaler prednisone and antibiotics Differential Diagnosis Differential Diagnoses: The differential diagnosis associated with the presentation includes ( See narrative above) Admission/Observation Consideration of admission/observation: Escalation of care including admission/observation considered ( see narrative above) Lab Data [facility] Lab Attestation statement: I reviewed the patient's lab results. ( see narrative above) Labs: Lab Results 02/28/24 02/28/24 Range/Units 18:11 20:12 Monoscreen Negative (Negative) Influenza Type A (PCR) NEGATIVE (Negative) Influenza Type B (PCR) NEGATIVE (Negative) RSV RNA Qual (PCR) NEGATIVE (Negative) SARS-CoV-2 RNA (RT-PCR) NEGATIVE (Negative) S. pyogenes GrpA SAMANTHA Negative (Negative) Prescription Management I considered prescription management with: Pain Medication ( acetaminophen/ibuprofen) and Antibiotic Discharge Plan Discharge Clinical Impression: Pharyngitis, Bronchitis Patient Disposition: Home, Self-Care Instructions: Pharyngitis (ED), Acute Bronchitis (ED) Additional Instructions: You can take ibuprofen 200 mg, 3 tablets (600mg) every 6-8 hours as needed for pain, in addition to Tylenol 500 mg, 2 tablets (1,000mg) every 4-6 hours as needed for pain, but not to exceed 3 doses daily (3,000mg).? Saltwater gargles. Course septic throat spray. Cepacol throat lozenges. Take antibiotics prednisone and cough drops as prescribed Use inhaler 2 puffs every 4-6 hours as needed for wheezing/cough Prescriptions: New cefuroxime axetil 500 mg tablet 500 mg PO BID 7 Days Qty: 14 0RF benzonatate 200 mg capsule 200 mg PO TID PRN (Reason: cough) Qty: 20 0RF prednisone 20 mg tablet 40 mg PO DAILY Qty: 10 0RF No Action naproxen 500 mg tablet 500 mg PO BID PRN (Reason: back pain) Qty: 28 0RF Print Language: Syriac
[2024-02-28 18:22] LABS: IDNOW Serial# 08D9AD1C; Strep A Nucleic Acid Negative (Negative)
[2024-02-28 18:56] LABS: Influenza A PCR NEGATIVE (Negative); Influenza B PCR NEGATIVE (Negative); Resp Syncy Virus RNA Qual PCR NEGATIVE (Negative); SARS COV2 PCR INHOUSE NEGATIVE (Negative)
[2024-02-28] MEDS: dexAMETHasone sod phosphate 10 MG/ML VIAL PO (21:28)
[2024-02-28 21:32] VITALS: BP 114/78; PULSE 92; RESP 20; TEMP 36.9; O2SAT 98
[2024-02-28 22:47] LABS: Monotest Negative (Negative)
[2024-02-28 22:49] VITALS: BP 126/72; PULSE 89; RESP 20; TEMP 36.9; O2SAT 98
[2024-02-28 23:17] VITALS: BP 126/72; PULSE 89; RESP 20; TEMP 36.9; O2SAT 98
== END 2024-02-28 23:18 | disposition home or self-care (01) ==
PROVIDERS: Emergency Medicine; Nurse Practitioner Family; Emergency Provider Internal Medicine
DX: J02.9 Acute pharyngitis, unspecified (principal); J40 Bronchitis, not specified as acute or chronic; Z03.818 Encounter for observation for suspected exposure to other biological agents ruled out; Z87.891 Personal history of nicotine dependence
CPT/HCPCS: 0241U; 36415; 86308; 87651; 99283; J1100

== ENCOUNTER 2024-08-05 14:11 | Outpatient (AMB) | payer OTHER, SELFPAY ==
--- NOTE | 2024-08-05 14:12 | A.OFFVIS_ITS ---
Vital Signs 08/05/24 14:18 Height 5 ft 2 in Weight 196 lb BMI 35.8 BP 130/65 Blood Pressure Location Rt brachial Position Sitting Pulse 80 Intake Visit Reasons: cyst Intake Note: Patient here for cyst on under Lt breast. Present for 4m. Patient thinks previou s cyst from chest migrated to under breast. Hx of cyst excision on sternum on 05-02-2018. Patient c/o: enlarging, oozing about 1m ago. Hx of cysts in groin area. Ichthyology Teacher Required: No Accompanied by: Self / Same As Patient Allergies No Known Allergies [No Known Allergies*] Allergy (Verified 08/05/24 14:17) HPI HPI cyst: Details: [age] year old female referred for a cyst. She was had this area of swelling and pain on the left breast for several years. However, this has been worsening over the past few months. She describes occasional redness. She therefore wants this removed. She has a history of a skin cyst near this area as well which was excised in the past. She denies any insect bite or trauma to the area. 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 Review of Systems Const Denies chills and Denies fever(s) Card Denies chest pain, Denies dyspnea and Denies dyspnea on exertion Resp Denies cough, Denies dyspnea and Denies dyspnea on exertion GI Denies hematochezia and Denies change in bowel habits Denies hematuria Musc Denies back pain and Denies limited range of motion Neuro Denies focal weakness and Denies convulsions Psych Denies depression and Denies mood swings Physical Exam Vital Signs: Last Vital Signs Pulse 80 08/05/24 14:18 BP 130/65 08/05/24 14:18 BMI result Body Mass Index 35.8 Const General: comfortable and no acute distress Orientation/consciousness: patient oriented x3 Neck Neck: Yes no lymphadenopathy Chest Other: Cystic induration on the left breast medially, about 1.5 cm, consistent with an epidermal cyst Resp Auscultation: clear to auscultation bilaterally Cardio Rhythm: regular rhythm GI Palpation (GI): Soft to palpation, nontender and no guarding Neuro General: patient oriented x3 Assessment & Plan Assessment & Plan (1) Epidermal cyst: Code(s): L72.0 - Epidermal cyst Category: Medical Plan She has this epidermal cyst on the left breast as described above. She wants this removed because of frequent swelling and inflammation. I explained to her the technique of excision under local anesthesia. I reviewed the risks including but not limited to bleeding and infections, as well as the benefits and alternatives. She understands and wants to proceed. This will be done in the office on her next visit. I did offer to have the excision done today but she says she is not mentally ready for this. Coding Level of Care Code New Pt Level 3 (33522) Diagnoses Epidermal cyst L72.0
[2024-08-05 14:18] VITALS: BP 130/65; PULSE 80; BMI 35.8
--- OUTSIDE RECORDS SUMMARY | 2024-08-05 17:16 | XMS_ITS | Clinical Summary ---
Author Organization [facility] ity Address [id number] [place] [id number] Care Team Providers Care Instructor Warper Name Role Phone Unavailable Primary Care Provider Unavailabl e Surgical History Surgery Date Site/Laterality Comments OTHER SURGICAL HISTORY 2016 PROCEDURE: SKIN CYST; COMMENT: Cyst removed from inbetween breast Medical History Medical History Date Comments Obesity DX:Obesity 10/10/2021 DX:; CO MMENT: Seen in ED for stomach pain radiating to bladder. Low HCG, early gestational sac, 12 weeks by dates, probably early intrauterine gastational sac, only 3mm (4wks 5 days) will follow w/ OB. Family History Medical History Relation Name Comments Breast cancer Aunt Maternal No Known Problems Brother 1 No Known Problems Brother 2 No Known Problems Brother 3 No Known Problems Brother 4 No Known Problems Brother 5 Diabetes Father Type 2 IDDM Hypertension Father Diabetes Maternal Grandfather Breast cancer Maternal Grandmother Hypertension Mother Stroke Mother Ovarian cancer Mother's side GGM Diabetes Paternal Grandfather Alzheimer's disease Paternal Grandmother No Known Problems Sister 1 No Known Problems Sister 2 Colon cancer Neg Hx Pancreatic cancer Neg Hx Prostate cancer Neg Hx Uterine cancer Neg Hx Relation Name Status Comments Aunt Maternal Alive Brother 1 Alive Brother 2 Alive Brother 3 Alive Brother 4 Alive Brother 5 Alive Father Alive Maternal Grandfather Maternal Grandmother Alive Mother Alive Mother's side Alive Paternal Grandfather Alive Paternal Grandmother Alive Sister 1 Alive Sister 2 Alive Social History Tobacco Use Types Packs/Day Years Used Date Smoking Tobacco: Never Smokeless Tobacco: Never Alcohol Use Standard Drinks/Week Comments Not Currently 0 (1 standard drink = 0.6 oz pur e alcohol) Comments Unknown Sex and Gender Information Value Date Recorded Sex Assigned at Not on file Legal Sex Female 10:26 AM EST Gender Identity Not on file Sexual Orientation Not on file Obstetrics History Last Filed Vital Signs Vital Sign Reading Time Taken Comments Blood Pressure 125/86 09/05/2022 2:09 PM EDT Pulse 76 09/05/2022 2:09 PM EDT Temperature - - Respiratory Rate - - Oxygen Saturation - - Inhaled Oxygen Concentration - - Weight 81.6 kg (179 lb 12.8 oz) 09/05/2022 2:09 PM EDT Height 157.5 cm (5' 2 ) 09/05/2022 2:09 PM EDT Body Mass Index 32.89 09/05/2022 2:09 PM EDT Plan of Treatment Health Maintenance Due Date Last Done Comments Gonorrhea/Chlamydia Screening 2001 HPV Vaccines (1 - 3-dose series) 01/19/2016 Meningococcal B Vaccine (1 o f 2 - Standard) 2017 Hepatitis B Vaccines (1 of 3 - 19+ 3-dose series) 01/19/2020 Cervical Cancer Screening: P ap Smear 2022 Cholesterol Screening (Lipid Panel) 03/19/2022 Depression Screening 03/19/2022 HIV Screening 03/19/2022 Hepatitis C Screening 03/19/2022 Social Influencers of Health Screening 03/19/2022 COVID-19 Vaccine (3 - 2023-2 5 season) 2023 05/04/2021, 2021 Influenza Vaccine (Season Ended) 2024 03/15/2022 DTaP,Tdap,and Td Vaccines (2 - Td or Tdap) 03/15/2032 03/15/2022 Varicella Vaccines Aged Out 05/28/2022 No longer eligible based on patient's age to complete this topic HIB Vaccines Aged Out No longer eligi ble based on patient's age to complete this topic Hepatitis A Vaccines Aged Out No long er eligible based on patient's age to complete this topic IPV Vaccines Aged Out No longer eligi ble based on patient's age to complete this topic MMR Vaccines Aged Out No longer eligi ble based on patient's age to complete this topic Meningococcal ACWY Vaccine Aged Out N o longer eligible based on patient's age to complete this topic Pneumococcal Vaccine: Pediatrics (0 to 5 Years) and At-Risk Patients (6 to 64 Years) Aged Out No longer eligible b ased on patient's age to complete this topic RSV Immunization Patients Under 20 months Aged Out No longer eligible b ased on patient's age to complete this topic
--- OUTSIDE RECORDS SUMMARY | 2024-08-05 17:16 | XMS_ITS | Clinical Summary ---
Author Organization [facility] Address [address] [place] [id number] Phone Care Team Providers Care Landscape Laborer Name Role Phone Unavailable Primary Care Provider Unavailabl e Allergies No known active allergies Medications polyethylene glycol (MIRALAX) powderIndications :Slow transit constipation Take 17 g by mouth daily. Stir and dissolve powder into 4 to 8 ounces of beverage and then drink. 550 g 2 9 Active Additional Information Patient not taking.Reported on 12/13/2020 medroxyPROGESTERo ne 150 MG/ML injectionIndicati ons:Encounter for initial prescription of injectable contraceptive Inject 1 mL (150 mg total) into the muscle every 3 (three) months. 1 mL 3 Active Active Problems Problem Noted Date Diagnosed Date Anxiety disorder 12/22/2020 Depression 12/22/2020 Marijuana use 12/20/2020 Sleep pattern disturbance 12/20/2020 Assessment & Plan (12/20/2020 11:41 AM EDT): Limited sleep; uses MJ as an aide and w/ too much MJ throws sleep off even more; BH warm hand of Insomnia secondary to depression with anxiety Hx of concussion 12/15/2020 Overview (12/15/2020): In middle school LOC went [employer] Off the record concussion before high school do not remember much of the game High school freshman yr Eczema 11/24/2019 Epigastric abdominal pain 11/24/2019 Overweight (BMI 25.0-29.9) 07/28/2018 Hidradenitis suppurativa 07/04/2017 Slow transit constipation 07/04/2017 Assessment & Plan (12/20/2020 11:40 AM EDT): toilet sit 3x/day for 5-10 min after every meal and before bed; discussed relaxing pelvic floor muscles by using step stool under feet, high fiber diet, pushing fluids and physical activity advised Advise consistent use of Miralax Resolved Problems Problem Noted Date Diagnosed Date Resolved Date Overweight child with body m ass index (BMI) > 99% for age 0609/22/2009 07/04/2017 Immunizations Immunization Administration Dates Next Due DTaP 5 04/08/2005, 3,2001,05/19,2001 H1N1 09/22/2009,05/03/2009 HPV Vaccine 9 Valent 04/12/2015 HPV, Quadrivalent 09/14/2014,09/10/2013 Hep A, ped/adol 09/14/2014,09/10/2013 Hep B, ped/adol 2001,2001,2001 Hib (PRP-T) 04/27/2002, 2,2001,03/17 IPV 04/08/2005, 2,2001,03/17 Influenza, injectable, quadr ivalent, preservative free 07/11/2020,01/21/2018,07/04/2017,02/26 Influenza, injectable, trivalent 05/03/2009,04/2007 Influenza, intranasal, quadrivalent 04/12/2015 MMR 04/08/2005,02/02/2002 Meningococcal Conj (Menactra) MCV4P 07/04/2017,0 09/10/2013 Pneumococcal Conjugate 2001,2001, Tdap 09/10/2013 Varicella 11/22/2020,11/06/2007,02/02/2002 Family History Medical History Relation Name Comments No Known Problems Brother Jose No Known Problems Father Moses No Known Problems Sister Marilyn Relation Name Status Comments Brother Jose Alive Brother: Alive and well Father Moses Alive Father: Elevate d cholesterol, Obesity Mother Ronny Mother: Obesity , Migraines Other No family histo ry of ADD/ADHD, No family history of Seizure disorder, No family history of Diabetes mellitus, No family history of Sudden /PR under age 55, No family history of Autism, No family history of Deafness, No family history of Strabismus/amblyopia, No family history of Developmental dislocation of hip Sister Marilyn Alive Sister: Asthma Social History Tobacco Use Types Packs/Day Years Used Date Smoking Tobacco: Never Comments:Never smoker Alcohol Use Standard Drinks/Week Comments No 0 (1 standard drink = 0.6 oz pur e alcohol) Hunger/Food Answer Date Recorded In the last 12 months, did y ou or your family ever eat less than you felt you should because there wasn't enough money for food? No 12/15/2020 Stable Housing Answer Date Recorded Are you worried that in the next 2 months you may not have stable housing? No 12/15/2020 Transportation Concerns Answer Date Rec orded In the last 12 months, have you or your family ever had to go without healthcare because you didn't have a way to get there? No 12/15/2020 Hazards in Home Answer Date Recorded Think about the place you li ve. Do you have problems with any of the following? Pests (mice or roaches), mold, no/not working smoke detectors, water leaks, no window guards. No 2020 Financing Utilities Answer Date Recorde d In the last 12 months, has t he electric, gas, oil, or water company threatened to shut off your services in your home? No 12/15/2020 Safety at Home Answer Date Recorded Are you or your family worried about feeling saf e in your home? No 12/15/2020 Outside Support Answer Date Recorded Do you feel that you need mo re support from other people or programs to help you care for yourself or your family? No 12/15/2020 Understanding Health Concerns Answer Da te Recorded Do you need help understandi ng your or your child's healthcare needs (diagnosis, medications, plan, etc.)? No 12/15/2020 Financing Health Concerns Answer Date R ecorded In the last 12 months, was t here a time when your child needed to see a doctor or get medications or supplies but could not because of cost? No 12/15/2020 Missing School or Work Answer Date Cb rded Did you or your child miss s chool or work because of a health problem that could have been avoided? No 12/15/2020 Comments No Sex and Gender Information Value Date Recorded Sex Assigned at Not on file Legal Sex Female 5:15 PM EDT Gender Identity Not on file Sexual Orientation Not on file Last Filed Vital Signs Vital Sign Reading Time Taken Comments Blood Pressure 119/72 12/15/2020 2:59 PM EDT Pulse 75 12/15/2020 2:59 PM EDT Temperature 36.8 ??C (98.3 ??F) 12/15/2020 2:59 PM ED T Respiratory Rate - - Oxygen Saturation - - Inhaled Oxygen Concentration - - Weight 77.3 kg (170 lb 6.4 oz) 12/15/2020 2:59 P M EDT Height 158.1 cm (5' 2.25 ) 12/15/2020 2:59 PM ED T Body Mass Index 30.92 12/15/2020 2:59 PM EDT Plan of Treatment Health Maintenance Due Date Last Done Comments Men B Vaccine (1 of 2 - Standard) 2017 Influenza Vaccines (#1) 2023 03/15/20, 07/11/2020, 01/21/2018, Additional history exists COVID-19 Vaccine ( - season) 2023 05/04/2021, 2021 DTaP,Tdap,and Td Vaccines (8 - Td or Tdap) 03/15/2032 03/15/2022, 09/10/2013, 04/08/2005, Additional history exists Hepatitis B Vaccines Completed 2001, 2001, 2001 Pneumococcal Vaccine Aged Out 2001, 2001, 2001 No longer eligible based on patient's age to complete this topic HIB Vaccines Completed 04/27/2002, 06/19, 2001, Additional history exists IPV Vaccines Completed 04/08/2005, 11/19, 2001, Additional history exists MMR Vaccines Completed 04/08/2005, 02/02/2002 Hepatitis A Vaccines Completed 09/14/2014, 09/11/19 14 HPV Vaccines Completed 04/12/2015, 08/20, 09/10/2013 Meningococcal Vaccine Completed 07/04/2017, 014 Varicella Vaccines Completed 05/28/2022, 0 11/22/2020, 11/06/2007, Additional history exists Procedures * Due to [facility] law, this organization might not be sharing sensitive test results. Procedure Name Priority Date/Time Associated Diagnosis Comments CHLAMYDIA AND GONORRHEA, AMPLIFIED Routine 12/13/2020 11:32 AM EDT Screening examination for bacterial and spirochetal disease from Last 3 Months or Most Recently Relevant to Health Maintenance Results * Due to [place] [employer] law, this organization might not be sharing sensitive test results. * Chlamydia and Gonorrhea, Amplified (12/13/2020 11:32 AM EDT) Chlamydia Trachomatis, DNA Probe NEGATIVE (NEG) [facility] Comment: No Chlamydia Trachomatis RNA detected in this patient's sample ? (REFERENCE RANGE/NORMAL VALUE: NOT DETECTED) ? Note: This test uses cabinet abrasive sandblaster- mediated amplification method to detect rRNA from C. Trachomatis URINE GC AMP PROBE NEGATIVE (NEG) [facility] Comment: No Neisseria Gonorrhoeae RNA detected in this patient's sample ? (REFERENCE RANGE/NORMAL VALUE: NOT DETECTED) ? NOTE: This test uses cabinet abrasive sandblaster-mediated amplification method to detect rRNA from N.Gonorrhoeae. A negative result does not preclude infection. In the case of a negative urine result, testing of an endocervical(female) or urethral (male) specimen is recommended if there is high clinical suspicion of infection. Due to very high sensitivity of Nucleic Acid Amplification Test, false positive results may occur. Therefore, specimen handling is extremely important. In patients in whom the disease is unlikely, additional sample for testing should be considered after an initial positive result. The performance characteristics of this test have not been evaluated in children. The Aptima Combo2 assay is not intended for the evaluation of suspected sexual abuse or for other medico-legal indications. The ordering provider should assess if the patient had consensual sex without risk of sexual abuse. Consult the [facility] if needed. Contact phone number . Therapeutic failure or success cannot be determined with the Aptima Combo2 assay since nucleic acid may persist following appropriate antimicrobial therapy. The Centers for Disease Control and Prevention (CDC) recommends confirmatory retesting using culture or a different nucleic acid amplification test when positive results occur, if indicated. Testing performed or reported by [facility], a Service of [facility], [facility] [place] [address] Gopi Reynolds MD, Irrigationist Designer [facility]# [id number] Urine 12/13/2020 11:3 2 AM EDT 12/13/2020 6:23 PM EDT us Merlene Peters DO LAB MICROBIOLOGY - GENERAL ORDER TRIPP Final Result [facility] from Last 3 Months or Most Recently Relevant to Health Maintenance [facility]
--- OUTSIDE RECORDS SUMMARY | 2024-08-05 17:16 | XMS_ITS | Encounter Summary ---
Author Organization [facility] Address [address] [place] [address] Phone Care Team Providers Care Business Analytics Faculty Member Name Role Phone Provider, Fredrick SANABRIA Primary Care Provider [phone] Encounter Details Date Type Department Care Team (Late st Contact Info) Description 08/09/2016 Documentation [facility] [address] [place] [address] Family Medicine, Physician [address] [place] [address] Social History Tobacco Use Types Packs/Day Years Used Date Smoking Tobacco: Never Comments:Never smoker Comments Unknown Sex and Gender Information Value Date Recorded Sex Assigned at Not on file Legal Sex Female 5:15 PM EDT Gender Identity Not on file Sexual Orientation Not on file documented as of this encounter Plan of Treatment Not on file documented as of this encounter Visit Diagnoses Not on filedocumented in this encounter Care Teams Business Analytics Faculty Member Relationship Specialty Start Date End Date Provider, MD Fredrick [address] [place] [address] PCP - General Pediatrics 05/20/22 11/25/22 documented as of this encounter
--- OUTSIDE RECORDS SUMMARY | 2024-08-05 17:16 | XMS_ITS | Encounter Summary ---
Author Organization [facility] Address [address] [place] [address] Phone Care Team Providers Care Receiving Associate Store Name Role Phone Provider, Fredrick SANABRIA Primary Care Provider [phone] Encounter Details Date Type Department Care Team (Late st Contact Info) Description 12/05/2016 Conversion Encounter [facility] [place] [address] [place], [place] [id number] Social History Tobacco Use Types Packs/Day Years [...] on filedocumented in this encounter Care Teams Receiving Associate Store Relationship Specialty Start Date End Date Provider, MD [address] [place] [phone] PCP - General Pediatrics 05/20/22 11/25/22 documented as of this encounter
== END 2024-08-05 14:29 | disposition home or self-care (01) ==
LOC: HO.HGS 14:12
PROVIDERS: Visit Provider Surgery
DX: L72.0 Epidermal cyst (principal)
CPT/HCPCS: 99203

== ENCOUNTER → 2024-08-05 14:11 | Outpatient (BNVA) | payer OTHER, SELFPAY | PROVIDERS: Visit Provider Surgery | DX: L72.0 Epidermal cyst (principal) | CPT/HCPCS: 99202 ==

== ENCOUNTER 2024-08-06 13:33 | Outpatient (AMB) | payer OTHER, SELFPAY ==
[2024-08-06 13:46] VITALS: BP 108/70; PULSE 91; TEMP 36.4; O2SAT 98; BMI 35.8
--- NOTE | 2024-08-06 13:46 | MHC.PC.OV ---
Vital Signs 08/06/24 13:46 Height 5 ft 2 in Weight 196 lb BMI 35.8 BP 108/70 Blood Pressure Location Lt brachial Position Sitting Pulse 91 Pulse Source Pulse Oximeter Temp 97.5 F Temp Source Temporal Artery Scan Pulse Oximetry (%) 98 Oxygen Delivery Method Room Air Intake Visit Reasons: establish care Consultant Nurse Required: No Accompanied by: Self / Same As Patient Allergies No Known Allergies [No Known Allergies*] Allergy (Verified 08/06/24 13:54) Medication List - Last Reconciled 08/06/24 by Amanda Alvares PA-C No Known Home Meds Tobacco use date assessed: 08/06/24 Dental Screening Dental Screen Date: 08/06/24 Did you have a dental visit in the last 12 months?: Yes Did you have a dental problem in the last 6 months where you did not have access to dental care?: No Was dental information given to patient?: Patient has dentist HPI establish care HPI Details 24-year-old female coming to the office for the 1st time.? In review of the notes patient has been following with General surgery for epidermal cyst under the left breast.? She has had multiple ED visits over the course of the last year for bronchitis and pyelonephritis she is also being followed by orthopedics for fracture of the right middle and right ring finger at our last visit was advised to follow up as needed. Patient was previously being seen at [place]. She also follows with [facility] for Depo injections. Presenting with breast pain, recurrent cysts, anxiety, and possible mood disorder. She develops significant breast pain since post- enlargement; it radiates from her shoulders and back, worsening upon physical exertion. A recurrence of previous cyst occurrences started over the last four months; a removal is planned for August 25. Reports behavior shifts , potentially indicating mood disorder with ties to family history of bipolar disorder. 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 1. Little interest or pleasure in doing things: several days 2. Feeling down, depressed, or hopeless: several days 3. Trouble falling or staying asleep, or sleeping too much: several days 4. Feeling tired or having little energy: several days 5. Poor appetite or overeating: several days 6. Feeling bad about yourself - or that you are a failure or have let yourself or your family down: several days 7. Trouble concentrating on things, such as reading the newspaper or watching television: several days 8. Moving or speaking so slowly that other people could have noticed. Or the opposite - being so fidgety or restless that you have been moving around a lot more than usual: more than half the days 9. Thoughts that you would be better off or of hurting yourself in some way: not at all Total score: 9 Depression Screening Interpretation: Positive (referral placed for counseling) Depression Screening Done: Yes 77784 - PHQ-9 Billing: Yes Source: Developed by Drs. Will Thomason, Maria Guadalupe Calderon, Kodi Garzon and colleagues, with an educational glenn from [employer]. Thrive Questionnaire Date Thrive assessed: 08/06/24 I am a: Patient What is your living situation today?: I have a steady place to live Within the past 12 months, did the food you bought not last and you didn't have the money to get more?: Never true Within the past 12 months, did you worry whether your food would run out before you got money to buy more?: Never true Do you have trouble paying for medicines?: I choose not to answer this question Do you have trouble getting transportation to medical appointments?: No Do you have trouble paying your heating and electricity bill?: No Do you have trouble taking care of your child, family member or friend?: No Do you have trouble with day-to-day activities such as bathing, preparing meals, shopping, managing finances, etc.?: No Are you currently unemployed and looking for a job?: No Are you interested in more education?: Yes Please select the resources that you would like help with: Childcare Currently or been in a relationship where the following occur: I choose not to answer THRIVE Score: 0 AUDIT C Alcohol Use Questionnaire (AUDIT-C) 1. How often do you have a drink containing alcohol?: Monthly or less 2. How many drinks containing alcohol do you have on a typical day when you are drinking?: 3 or 4 3. How often do you have six or more drinks on one occasion?: Never Total Score: 2 IRIS-7 AMB Questionnaire IRIS-7 Date IRIS - 7 assessed: 08/06/24 Feeling nervous, anxious, or on edge: 2 = More than half the days Not being able to stop or control worryin = More than half the days Worrying too much about different things: 2 = More than half the days Trouble relaxin = More than half the days Being so restless that it is hard to sit still: 2 = More than half the days Becoming easily annoyed or irritable: 3 = Nearly every day Feeling afraid as if something awful might happen: 3 = Nearly every day Total IRIS-7 score (0-4 normal; 5-9 mild; 10-14 moderate; 15-21 severe): 16 Source: Developed by Drs. Will Thomason, Maria Guadalupe Calderon, Kodi Garzon and colleagues, with an educational glenn from [employer]. IRIS-7 Assessment Billing IRIS-7 Assessment Tool: IRIS-7 Assessment 59797 Review of Systems Const Denies body aches, Denies chills, Denies fever(s), Denies headache(s) and Denies poor appetite Eyes Reports no additional complaints ENT Denies dizziness and Denies headache(s) Card Denies chest pain and Denies dyspnea Resp Denies dyspnea GI Denies nausea and Denies vomiting Reports no additional complaints Musc Reports no additional complaints and Denies abnormal gait Skin/Breast Reports system reviewed and no additional complaints, except as documented Neuro Denies abnormal gait, Denies dizziness and Denies headache(s) Psych Reports no additional complaints Physical exam (Primary Care) Vital Signs: Last Vital Signs Temp 97.5 F 08/06/24 13:46 BMI result Body Mass Index 35.8 Tobacco/Smoking Status: Tobacco use Status Patient Tobacco Use Status Former Tobacco user 01/24/24 02:28 Depression Screening Interpretation: Positive (referral placed for counseling) Currently or been in a relationship where the following occur: I choose not to answer Const General: cooperative, healthy appearing, comfortable and no acute distress Orientation/consciousness: patient oriented x3 HENMT Head: Yes normocephalic Ears: hearing grossly normal bilaterally General nose exam: Normal external nose present Eyes General: appearance normal, both eyes and all related structures Conjunctivae: conjunctivae normal Neck Neck: Yes full ROM and Yes no lymphadenopathy Resp Effort & Inspection: normal respiratory effort Auscultation: clear to auscultation bilaterally, no crackles, no rales, no rhonchi and no wheezes Cardio Rate: regular rate Rhythm: regular rhythm Skin General skin exam: no rashes or lesions noted Neuro General: patient oriented x3 Gait exam (Neuro): Normal gait present Extrem General: Yes normal to inspection, Yes full ROM and No edema Psych Affect: normal affect Attitude: cooperative Insight: Good insight present (Psych) Judgement: Good judgement present (Psych) Coding Level of Care Code New Pt Level 4 (96235) Diagnoses Epidermal cyst L72.0 Anxiety F41.9 Depression F32.A Large breasts N62 Additional Codes PHQ-9 - 15031 - PHQ-9 Billing: Yes ([id number]) IRIS-7 Assessment Billing - IRIS-7 Assessment Tool: IRIS-7 Assessment 93173 ([id number]) Assessment & Plan Assessment & Plan (1) Epidermal cyst: Code(s): L72.0 - Epidermal cyst Category: Medical Plan: Patient is scheduled to have cyst removal August 25 with General surgery. (2) Anxiety: Code(s): F41.9 - Anxiety disorder, unspecified Category: Medical Plan: Patient having anxiety and depression question of bipolar disorder plan to obtain outpatient psych consult as well as counseling referral for further management. Patient denies any thoughts of self-harm at this time (3) Depression: Code(s): F32.A - Depression, unspecified Category: Medical Plan: See above (4) Large breasts: Code(s): N62 - Hypertrophy of breast Category: Medical Plan: Patient having large breasts causing significant back pain especially with prolonged periods of standing. She does struggle with breast enlargement . Referral was placed to Plastic surgery today. Plan The patient presented with concerns including breast pain, cyst recurrence, anxiety, and potential mood disorder. I will facilitate a referral to plastic surgery to discuss a breast reduction due to ongoing pain despite previous attempts at non-surgical management. A cyst removal is scheduled, and appropriate referrals are made for insurance verification and possible plastic surgery consultation. Given her anxiety symptoms, I recommended a psychiatric evaluation and counseling to address potent mood disorder linked to family history. Additionally, a gynecological referral was placed for further contraceptive care. Routine screenings were addressed with blood work and STD testing. Follow-up is planned within three months for comprehensive review. This note was constructed using voice recognition software. While every effort has been made to ensure accuracy and statistician theoretical, still areas may have been included sometimes these areas may affect the content or meeting of the given symptoms. Total time spent caring for the patient today was 30 minutes. This includes time spent before the visit reviewing the chart, time spent during the visit, and time spent after the visit and documentation. Patient was informed and verbally consented to the use of an ambient scribe for clinic note documentation during this visit. Orders: Orders Free T4 (Free Thyroxine) Today Z00.00 - Encounter for general adult medical examination without abnormal findings Vitamin B12 and Folate Today Z00.00 - Encounter for general adult medical examination without abnormal findings TSH reflex Free T4 Today Z00.00 - Encounter for general adult medical examination without abnormal findings Vitamin D 25-OH Total Today Z00.00 - Encounter for general adult medical examination without abnormal findings CT NG by PCR Today Z00.00 - Encounter for general adult medical examination without abnormal findings Referrals Counseling Referral F32.A - Depression, unspecified, F41.9 - Anxiety disorder, unspecified Plastic Surgery Referral N62 - Hypertrophy of breast Psychiatry Outpatient Consultation Service F32.A - Depression, unspecified, F41.9 - Anxiety disorder, unspecified [employer]OR [employer] Referral Z12.4 - Encounter for screening for malignant neoplasm of cervix
--- OUTSIDE RECORDS SUMMARY | 2024-08-06 13:57 | XMS_ITS | Encounter Summary ---
Author Organization [facility] Address [address] [place] [address] Phone Care Team Providers Care Burial Vault Deliverer And Installer Name Role Phone Provider, Fredrick SANABRIA Primary Care Provider [phone] Encounter Details Date Type Department Care Team (Late st Contact Info) Description 08/09/2016 Documentation [facility] Family Medicine [address] [place] [address] Family Medicine, Physician [address] [place] [address] Social History Tobacco Use Types Packs/Day Years [...] on filedocumented in this encounter Care Teams Burial Vault Deliverer And Installer Relationship Specialty Start Date End Date Provider, MD Fredrick [address] [place] [address] PCP - General Pediatrics 05/20/22 11/25/22 documented as of this encounter
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
--- OUTSIDE RECORDS SUMMARY | 2024-08-06 13:57 | XMS_ITS | Encounter Summary ---
Author Organization [facility] Address [address] [place] [address] Phone Care Team Providers Care Hanger Name Role Phone Provider, Fredrick SANABRIA Primary Care Provider [phone] Encounter Details Date Type Department Care Team (Late st Contact Info) Description 12/05/2016 Conversion Encounter [facility] [address] [place], [place] [id number] Social History Tobacco Use Types Packs/Day Years [...] on filedocumented in this encounter Care Teams Hanger Relationship Specialty Start Date End Date Provider, MD Fredrick [address] [place] [phone] PCP - General Pediatrics 05/20/22 11/25/22 documented as of this encounter
--- OUTSIDE RECORDS SUMMARY | 2024-08-06 13:58 | XMS_ITS | Clinical Summary ---
Author Organization [facility] Address [id number] [place] [phone] Care Team Providers Care Tire Duster Name Role Phone Unavailable Primary Care Provider [...]
== END 2024-08-06 14:15 | disposition home or self-care (01) ==
DX: L72.0 Epidermal cyst (principal); F41.9 Anxiety disorder, unspecified; F32.A Depression, unspecified; N62 Hypertrophy of breast

== ENCOUNTER → 2024-08-06 13:33 | Outpatient (BNVA) | payer OTHER, SELFPAY | DX: L72.0 Epidermal cyst (principal); F41.9 Anxiety disorder, unspecified; F32.A Depression, unspecified; N62 Hypertrophy of breast | CPT/HCPCS: 96127; 99202 ==

== ENCOUNTER 2024-10-26 15:01 | Outpatient (AMB) | payer OTHER, SELFPAY ==
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
--- OUTSIDE RECORDS SUMMARY | 2024-10-26 15:44 | XMS_ITS | Clinical Summary ---
Author Organization [facility] ity Address [id number] [place] [phone] Care Team Providers Care Analyst Market Intelligence Name Role Phone Unavailable Primary Care Provider [...] 5 season) 2023 05/04/2021, 2021 Influenza Vaccine (#1) 2024 03/15/2022 DTaP,Tdap,and Td Vaccines (2 - [...] 5 Years) and At-Risk Patients (6 to 49 Years) Aged Out No longer eligible b ased on patient's age to complete this topic RSV Immunization Patients Under 20 months Aged Out No longer eligible b ased on patient's age to complete this topic
--- OUTSIDE RECORDS SUMMARY | 2024-10-26 15:44 | XMS_ITS | Encounter Summary ---
Author Organization [facility] Address [address] [place] [address] Phone Care Team Providers Care Ice Carver Name Role Phone Provider, Fredrick SANABRIA Primary Care Provider [phone] Encounter Details Date Type Department Care Team (Late st Contact Info) Description 12/05/2016 Conversion Encounter [facility] [address] [place], [place] [phone] Social History Tobacco Use Types Packs/Day Years [...] on filedocumented in this encounter Care Teams Ice Carver Relationship Specialty Start Date End Date Provider, MD Fredrick [address] [place] [phone] PCP - General Pediatrics 05/20/22 11/25/22 documented as of this encounter
== END 2024-10-26 16:08 | disposition home or self-care (01) ==
LOC: HO.HOP 15:01
PROVIDERS: Visit Provider Clinical Nurse Specialist Psychiatric/Mental Health
DX: F33.1 Major depressive disorder, recurrent, moderate (principal); F41.1 Generalized anxiety disorder
CPT/HCPCS: 90792

== ENCOUNTER → 2024-10-26 15:01 | Outpatient (BNVA) | payer OTHER, SELFPAY | PROVIDERS: Visit Provider Clinical Nurse Specialist Psychiatric/Mental Health | DX: F33.1 Major depressive disorder, recurrent, moderate (principal); F41.9 Anxiety disorder, unspecified | CPT/HCPCS: 90792 ==

== ENCOUNTER 2024-11-16 15:00 | Outpatient (AMB) | payer OTHER, SELFPAY ==
--- OUTSIDE RECORDS SUMMARY | 2024-11-16 15:50 | XMS_ITS | Clinical Summary ---
Author Organization [facility] ity Address [id number] [place] [phone] Care Team Providers Care Foam Rubber Mixer Name Role Phone Unavailable Primary Care Provider [...] Smear 2022 Cholesterol Screening (Lipid Panel) 03/19/2022 HIV Screening 03/19/2022 Hepatitis C Screening 03/19/2022 Social Influencers of Health Screening 03/19/2022 COVID-19 Vaccine (3 - 2023-2 5 season) 2023 05/04/2021, 2021 Depression Screening 04/21/2024 Influenza Vaccine (#1) 2024 03/15/2022 DTaP,Tdap,and Td [...]
--- OUTSIDE RECORDS SUMMARY | 2024-11-16 15:50 | XMS_ITS | Encounter Summary ---
Author Organization [facility] Address [address] [place] [address] Phone Care Team Providers Care Test Developer Name Role Phone Provider, Fredrick SANABRIA Primary Care Provider [phone] Encounter Details Date Type Department Care Team (Late st Contact Info) Description 12/05/2016 Conversion Encounter [facility] [address], [place] [id number] Social History Tobacco Use Types Packs/Day Years [...] on filedocumented in this encounter Care Teams Test Developer Relationship Specialty Start Date End Date Provider, MD Fredrick [address] [place] [id number] PCP - General Pediatrics 05/20/22 11/25/22 documented as of this encounter
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
== END 2024-11-16 15:32 | disposition home or self-care (01) ==
LOC: HO.HOP 15:00
PROVIDERS: Visit Provider Clinical Nurse Specialist Psychiatric/Mental Health
DX: F33.1 Major depressive disorder, recurrent, moderate (principal); F41.1 Generalized anxiety disorder
CPT/HCPCS: 99214

== ENCOUNTER → 2024-11-16 15:00 | Outpatient (BNVA) | payer OTHER, SELFPAY | PROVIDERS: Visit Provider Clinical Nurse Specialist Psychiatric/Mental Health | DX: F41.1 Generalized anxiety disorder (principal); F33.1 Major depressive disorder, recurrent, moderate | CPT/HCPCS: 99212 ==

== ENCOUNTER 2024-12-13 12:04 | Emergency (ER) | payer OTHER, SELFPAY ==
[2024-12-13 12:12] VITALS: BP 123/79; PULSE 80; RESP 16; TEMP 37.1; O2SAT 100; BMI 35.3
--- NOTE | 2024-12-13 12:14 | ED.GENADULT ---
HPI - General Adult General Chief complaint: General Medical Stated complaint: uti Time Seen by Provider: 12/13/24 12:46 Source: patient Mode of arrival: ambulatory Limitations: no limitations History of Present Illness ED Provider: Kendy Law APRN HPI narrative: This is a 24-year-old female who presents the ER with complaints of urinary burning, frequency for several days. Went to urgent care yesterday and prescribed an antibiotic which she did not brass pickler or start yet. She was encouraged to go to the emergency room if she developed back pain and this morning she developed back pain which he describes his bilateral lower back and radiates up the back. She also has had some lower abdominal discomfort. She had some vaginal discharge which she describes as yellow and creamy a few days ago but this is resolved. She denies any pelvic pain. She has had a new male sexual partner and has not used condoms. She is on Depo and has an irregular menses. She denies any fever or vomiting. Related Data Previous Rx's ?Medication ?Instructions ?Recorded lamotrigine 25 mg tablet 25 mg PO .COMPLEX 30 days #45 tabs 10/26/24 lamotrigine 100 mg tablet 100 mg PO DAILY #30 tabs 11/16/24 (Lamictal) mirtazapine 7.5 mg tablet 7.5 mg PO BEDTIME #30 tabs 11/25/24 metronidazole 500 mg tablet 500 mg PO BID #14 tabs 12/13/24 Allergies Allergy/AdvReac Type Severity Reaction Status Date / Time No Known Allergies (No Known Allergy Verified 12/13/24 12:15 Allergies*) Review of Systems Review of Systems: Yes all other systems are reviewed and are negative Constitutional: Constitutional: Reports no additional constitutional complaints, Denies body ache(s), Denies chills, Denies fever(s), Denies headache(s) and Denies weakness Eyes: Eyes: Reports no additional eye complaints and Denies change in vision ENT: Reports system reviewed and no additional complaints, except as documented, Denies dizziness, Denies headache(s), Denies nasal congestion, Denies nasal discharge and Denies neck pain Cardiovascular: Cardiovascular: Reports no additional cardiovascular complaints, Denies chest pain, Denies leg edema and Denies dyspnea Respiratory: Respiratory: Reports no additional respiratory complaints, Denies cough and Denies dyspnea Gastrointestinal: Gastrointestinal: Reports no additional gastrointestinal complaints, Denies abdominal pain, Denies diarrhea, Denies nausea and Denies vomiting Genitourinary: Genitourinary: Reports no additional female genitourinary complaints, Reports dysuria, Denies pelvic pain, Denies urinary incontinence, Denies urinary hesitancy, Reports urinary urgency, Reports vaginal discharge, Denies vaginal dryness, Denies vaginal odor and Denies vaginal pruritus Musculoskeletal: Musculoskeletal: Reports no additional musculoskeletal complaints, Reports back pain, Denies arthralgias, Denies joint swelling, Denies neck pain, Denies numbness and Denies tingling Integumentary/Breasts: Skin/Breast: Reports system reviewed and no additional complaints, except as docu and Denies rash Neurologic: Reports system reviewed and no additional complaints, except as documented, Denies Abnormal speech present, Denies dizziness, Denies headache(s), Denies numbness, Denies tingling and Denies weakness PMFSH Past Medical History Attestation statement: The following information was validated with the patient. 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 Cognitive needs: No Hearing needs: No Vision needs: No Physical Exam ED Vital Signs: Vital Signs - 24 hr 12/13/24 12:12 12/13/24 14:26 12/13/24 14:28 Temperature 98.7 F 98.7 F 98.7 F Pulse Rate 80 80 80 Respiratory Rate 16 16 16 Blood Pressure 123/79 123/79 123/79 Pulse Oximetry 100 100 100 Oxygen Delivery Method Room Air Room Air Room Air BMI result Body Mass Index 35.3 Const General: cooperative, healthy appearing, comfortable and no acute distress Orientation/consciousness: patient oriented x3 Limitations: no limitations HENMT Head: Yes normal to inspection Ears: hearing grossly normal bilaterally General nose exam: Normal external nose present Face and sinus: Yes normal facial exam Mouth: Normal oral and palatal mucosa present Throat: Yes posterior oropharynx normal Eyes General: appearance normal, both eyes and all related structures Pupils: Equal, round and reactive pupils present Neck Neck: Yes normal visual inspection Chest Chest palpation & inspection: normal inspection of the chest Resp Effort & Inspection: normal respiratory effort Auscultation: clear to auscultation bilaterally Cardio Rate: regular rate Rhythm: regular rhythm Peripheral pulses: Peripheral pulses 2+ throughout GI Inspection: Yes normal to inspection Palpation (GI): Soft to palpation and nontender Auscultation: normal bowel sounds General: Yes no CVA tenderness Back/Spine/Pelvis Back: no CVA tenderness Thoracic/Lumbar Spine: thoracic and lumbar spine normal to inspection Skin General skin exam: no rashes or lesions noted Neuro General: patient oriented x3, no focal motor deficits and normal sensation to monofilament Cranial nerves: Yes Equal, round and reactive pupils present Cognition (Neuro): normal cognition Speech: No Abnormal speech present Gait exam (Neuro): Normal gait present Motor exam (neuro): 5/5 motor strength present throughout Extrem General: Yes normal to inspection Course Course Course Narrative: Rapid medical examination performed in triage by Vanessa Pedraza PA-C. Patient is a 24 year old assigned female at presenting to the emergency department with worsening UTI. Patient states that she was seen at an urgent care yesterday for urinary symptoms, told she had a UTI and prescribed medication but the pharmacy it went to wasn't open so she has not started on them yet. States that she has a new sexual partner. Detailed physical exam and review of systems are deferred to the director of vocational training. Labs ordered. Patient placed back in the waiting room pending room availability and results. Reevaluation(s) Reevaluation #1: UA is consistent with a UTI. BV panel is positive for BV. I reviewed the patient's full history. She does have prescriptions for Macrobid and Diflucan available at the pharmacy. I recommend she pick these up. I will add metronidazole. Her lab work is normal. Her gonorrhea and chlamydia tests are pending. She is aware of this. Her repeat abdominal exam is unchanged. I have low suspicion for acute abdomen, renal colic or pyelonephritis based on her exam. Recommend she take the medications as prescribed. Reviewed worrisome signs and symptoms of when to return to the emergency room. Comfortable plan for discharge home. Medical Decision Making Medical Decision Making [facility] Narrative: This is a 24-year-old female who presents the ER with complaints of urinary burning, frequency for several days. Went to urgent care yesterday and prescribed an antibiotic which she did not brass pickler or start yet. She was encouraged to go to the emergency room if she developed back pain and this morning she developed back pain which he describes his bilateral lower back and radiates up the back. She also has had some lower abdominal discomfort. She had some vaginal discharge which she describes as yellow and creamy a few days ago but this is resolved. She denies any pelvic pain. She has had a new male sexual partner and has not used condoms. She is on Depo and has an irregular menses. She denies any fever or vomiting. On exam there is no CVA tenderness or focal abdominal pain. Her urine does look like she has a urinary tract infection. I will obtain blood work on her She did self swab in triage for BV panel and CTNG Differential Diagnosis Differential Diagnoses: The differential diagnosis associated with the presentation includes UTI Doubt pyelonephritis or renal colic STI Doubt PID, TOA, appendicitis, ovarian torsion Admission/Observation Consideration of admission/observation: Escalation of care including admission/observation considered Lab Data MDM Lab Attestation statement: I reviewed the patient's lab results. 12/13/24 13:30 12/13/24 13:30 Labs: Lab Results 12/13/24 12/13/24 Range/Units 12:41 13:30 WBC 6.4 (4.8-10.8) X10*3/uL RBC 4.30 (4.20-5.50) X10*6/uL Hgb 12.5 (12.0-16.0) g/dl Hct 36.2 L (37.0-47.0) % MCV 84.2 (80.0-98.0) fL MCH 29.1 (27.0-33.0) pg MCHC 34.5 (31.0-35.0) g/dl RDW 12.6 (11.0-16.0) % Plt Count 298 (160-400) X10*3/uL MPV 10.2 (9.4-12.3) fL Immature Gran % (Auto) 0.5 H (0.0-0.4) % Neut % (Auto) 56.4 (45-73) % Lymph % (Auto) 32.2 (20-40) % [place] % (Auto) 7.8 (2-11) % Eos % (Auto) 2.5 (0-4) % Baso % (Auto) 0.6 (0-2) % Lymph # (Auto) 2.1 (1.2-4.9) X10*3/uL [place] # (Auto) 0.5 (0.1-1.2) X10*3/uL Eos # (Auto) 0.2 (0.0-0.4) X10*3/uL Baso # (Auto) 0.0 (0.0-0.2) X10*3/uL Abs Immat Gran (auto) 0.03 (0.00-0.03) X10*3/uL Absolute Neuts (auto) 3.6 (2.0-8.3) x10*3/uL Absolute Nucleated RBC 0.000 (0.0-0.012) X10*3/uL Nucleated RBC % (auto) 0.0 (0.0-0.2) /100WBC Sodium 140 (135-145) mmol/L Potassium 3.3 (3.3-5.1) mmol/L Chloride 107 (96-108) mmol/L Carbon Dioxide 26 (22-29) mmol/L Anion Gap 10 L (12-20) BUN 9 (9-16) mg/dL Creatinine 0.69 (0.5-1.4) mg/dL Estim Creat Clear Calc 130.2 Estimated GFR > 60 Random Glucose 91 (60-115) mg/dL Calcium 9.1 (8.4-10.2) mg/dL Total Bilirubin 0.3 (0.0-1.0) mg/dL Direct Bilirubin 0.1 (0.0-0.5) mg/dL AST 18 (5-31) U/L ALT 21 (0-31) U/L Alkaline Phosphatase 96 (39-117) U/L Total Protein 6.7 (6.5-8.0) g/dL Albumin 4.1 (3.5-5.0) g/dL Beta HCG, Quant < 2 mIU/mL Urine Color Yellow Urine Appearance Clear Urine pH 5.5 (5.0-9.0) Ur Specific [place] >= 1.030 H (1.005-1.025) Urine Protein Negative (Neg-Trace) mg/dL Urine Glucose (UA) Negative (Negative) mg/dL Urine Ketones Trace (Negative) mg/dL Urine Blood Negative (Negative) Urine Nitrite Negative (Negative) Ur Leukocyte Esterase Moderate (2+) H (Negative) Urine RBC 0-2 (0-2) /HPF Urine WBC 0-5 (0-5) /HPF Ur Squamous Epith Cells 6-10 (0-2) /HPF Urine Bacteria Trace (None Seen) Hyaline Casts 0-2 (0-2) /LPF Chlam trachomat DNA PCR NOT DETECTED (Not Detect.) N.gonorrhoeae DNA (PCR) NOT DETECTED (Not Detect.) T. vaginalis (PCR) NOT DETECTED (Not Detect) Bact vaginosis (PCR) POSITIVE A (Negative) C. krusei/glabrata (PCR) NOT DETECTED (Not Detect) Zakia group (PCR) NOT DETECTED (Not Detect) Discharge Plan Discharge Clinical Impression: UTI (urinary tract infection), Bacterial vaginosis Patient Disposition: Home, Self-Care Instructions: Bacterial Vaginosis (ED), Urinary Tract Infection in Women (ED) Additional Instructions: Start the antibiotic dose prescribed to yesterday We are also starting you on metronidazole. Make sure that you take these with food. Do not drink alcohol while taking his medications We did also test for gonorrhea and chlamydia. These results are pending. We will call you if they are positive and if you need additional treatment Your lab work is normal Please return for severe abdominal pain, fever, vomiting Prescriptions: New metronidazole 500 mg tablet 500 mg PO BID Qty: 14 0RF No Action mirtazapine 7.5 mg tablet 7.5 mg PO BEDTIME Qty: 30 0RF lamotrigine 25 mg tablet 25 mg PO .COMPLEX 30 Days Qty: 45 0RF Rx Instructions: 25 mg orally Take one tablet daily x 7 days then take 2 tablets daily in the morning; lamotrigine [Lamictal] 100 mg tablet 100 mg PO DAILY Qty: 30 0RF Referrals: Physician,Unknown J [Primary Care Provider, Medical] Stand Alone Forms: Work/School Release Interventions: ED Discharge Assessment Last Done: 12/13/24 14:28 Print Language: Amharic
--- NOTE | 2024-12-13 12:39 | MHC.EDTECH ---
Patient brought into triage area,BV/CTNG,and urine obtained and sent to lab. Patient self swabbed.
[2024-12-13 12:54] LABS: Appearance Urine Clear; Glucose Urine UA Negative (Negative); PH 5.5 (5.0-9.0); Specific Gravity - Urine >= 1.030 (1.005-1.025); UMIC TRIGGER UACC YES
[2024-12-13 13:08] LABS: UACC Culture Trigger YES
[2024-12-13 13:34] LABS: MANUAL DIFF FLAG NO
[2024-12-13 13:41] LABS: Hematocrit 36.2 % (37.0-47.0); Hemoglobin 12.5 g/dl (12.0-16.0); Imm Gran Abs Auto 0.03 X10*3/uL (0.00-0.03); Imm Gran Pct Auto 0.5 % (0.0-0.4); Lymphocytes Absolute Auto 2.1 X10*3/uL (1.2-4.9); Mean Corpuscular HGB Conc 34.5 g/dl (31.0-35.0); Mean Corpuscular Hemoglobin 29.1 pg (27.0-33.0); Mean Corpuscular Volume 84.2 fL (80.0-98.0); NRBC Abs Auto 0.000 X10*3/uL (0.0-0.012); NRBC Pct Auto 0.0 /100WBC (0.0-0.2); Platelet Count 298 X10*3/uL (160-400); Red Blood Count 4.30 X10*6/uL (4.20-5.50); White Blood Count 6.4 X10*3/uL (4.8-10.8)
[2024-12-13 13:50] LABS: Alanine Aminotransferase 21 U/L (0-31); Albumin Level 4.1 g/dL (3.5-5.0); Alkaline Phosphatase 96 U/L (39-117); Anion Gap 10 (12-20); Aspartate Amino Transferase 18 U/L (5-31); Blood Urea Nitrogen 9 mg/dL (9-16); Calcium 9.1 mg/dL (8.4-10.2); Carbon Dioxide 26 mmol/L (22-29); Chloride 107 mmol/L (96-108); Creatinine Clr Calc Pharmacy 130.2; Estimated Glomerular Filt Rate > 60; Potassium 3.3 mmol/L (3.3-5.1); Sodium 140 mmol/L (135-145); Total Protein 6.7 g/dL (6.5-8.0)
[2024-12-13 13:52] LABS: Bacterial Vaginosis PCR POSITIVE (Negative); Candida Group PCR NOT DETECTED (Not Detect); Candida glab krusei PCR NOT DETECTED (Not Detect); Trichomonas vaginalis PCR NOT DETECTED (Not Detect)
--- OUTSIDE RECORDS SUMMARY | 2024-12-13 13:56 | XMS_ITS | Clinical Summary ---
Author Organization [facility] ity Address [id number] [place] [id number] Care Team Providers Care Fiberglasser Name Role Phone Unavailable Primary Care Provider [...]
--- OUTSIDE RECORDS SUMMARY | 2024-12-13 13:56 | XMS_ITS | Encounter Summary ---
Author Organization [facility] Address [address] [place] [address] Phone Care Team Providers Care Master Ocean Yacht Name Role Phone Provider, Fredrick SANABRIA Primary Care Provider [phone] Encounter Details Date Type Department Care Team (Late st Contact Info) Description 12/05/2016 Conversion Encounter [facility] [address] [place], [place] [id number] Social History Tobacco Use Types Packs/Day Years [...] on filedocumented in this encounter Care Teams Master Ocean Yacht Relationship Specialty Start Date End Date Provider, MD Fredrick [address] [place] [phone] PCP - General Pediatrics 05/20/22 11/25/22 documented as of this encounter
[2024-12-13 14:23] LABS: CT PCR NOT DETECTED (Not Detect.); NG PCR NOT DETECTED (Not Detect.)
[2024-12-13 14:26] VITALS: BP 123/79; PULSE 80; RESP 16; TEMP 37.1; O2SAT 100
[2024-12-13 14:28] VITALS: BP 123/79; PULSE 80; RESP 16; TEMP 37.1; O2SAT 100
== END 2024-12-13 14:40 | disposition home or self-care (01) ==
PROVIDERS: Nurse Practitioner Family; Physician Assistant Medical; Emergency Provider Emergency Medicine
DX: N76.0 Acute vaginitis (principal); N39.0 Urinary tract infection, site not specified; R30.0 Dysuria; R35.0 Frequency of micturition; M54.50 Low back pain, unspecified; R10.2 Pelvic and perineal pain; Z87.891 Personal history of nicotine dependence; Z79.899 Other long term (current) drug therapy
CPT/HCPCS: 36415; 80048; 80076; 81001; 81515; 84702; 85025; 87086; 87491; 87591; 99283; 99284